=== PATIENT | male | born 1955 | race Caucasian/White ===

== ENCOUNTER 2021-05-03 12:37 | Emergency (ER) | payer MEDICARE, SELFPAY ==
--- NOTE | ~2021-05-03 | XR_ITS ---
EXAMINATION: XR hand RT min 3V DATE: 05/03/2021 13:09 INDICATION: Right hand injury. TECHNIQUE: 3 views of right hand were obtained. COMPARISON: None. FINDINGS: There is an oblique fracture of base of fifth metacarpal. The distal fracture fragment demo nstrates 2 mm posterior and ulnar sided displacement. There is mild osteoarthritis of triscaphe joint , first carpometacarpal joint, and many of the metacarpophalangeal joints and interphalangeal joints. There is moderate osteoarthritis of second and third distal interphalangeal joints. IMPRESSION: 1. Oblique fracture of base of fifth metacarpal. 2. Polyarticular osteoarthritis. Reviewed, dictated and finalized at location A.
[2021-05-03 12:49] VITALS: BP 158/73; PULSE 85; RESP 20; TEMP 36.9; O2SAT 96
--- NOTE | 2021-05-03 12:59 | ED.UPPEXIN ---
HPI - Extremity Injury (Upper) General Chief Complaint: Extremity Injury, Upper Stated Complaint: right wrist injury Time Seen by Provider: 05/03/21 13:10 Source: patient, family, RN notes reviewed and old records reviewed Mode of arrival: ambulatory Limitations: no limitations History of Present Illness HPI narrative: 66-year-old male presents to the [facility] with right lateral hand pain and swelling. Patient reports that he was vacuuming when he tripped over the cord and fell onto his right hand. Area is swollen and bruised. Strong brick paving checker noted. Capillary refill under 2 seconds. Sensation intact in fingers 1 2 and 3. States he has a history of 4 and 5 being numb from when he had a PICC line. Bruising noted to the lateral aspect of the fifth meta carpal. Also fingers 3 and 4 Denies any new back pain or neck pain. Patient states he takes hydrocodone and fentanyl at home, does not need any additional pain medicine MD complaint: injury to: right and hand Related Data Home Medications Medication Instructions Recorded Confirmed amlodipine 10 mg PO DAILY 05/03/21 05/03/21 atorvastatin 40 mg PO DAILY 05/03/21 05/03/21 fentanyl 1 patch TOPICAL Q72H 05/03/21 05/03/21 hydrochlorothiazide 25 mg PO DAILY 05/03/21 05/03/21 hydrocodone-acetaminophen 1 tablet PO Q6H PRN 05/03/21 05/03/21 insulin glargine [Basaglar KwikPen 15 unit SUBCUT QPM 05/03/21 05/03/21 U-100 Insulin] levothyroxine 75 mcg PO DAILY 05/03/21 05/03/21 losartan 100 mg PO DAILY 05/03/21 05/03/21 omeprazole 40 mg PO BID 05/03/21 05/03/21 promethazine 25 mg PO Q6H PRN 05/03/21 05/03/21 sertraline 100 mg PO DAILY 05/03/21 05/03/21 trazodone 50 mg PO HS 05/03/21 05/03/21 ustekinumab [Stelara] 90 mg SUBCUT MONTHLY 05/03/21 05/03/21 Allergies Allergy/AdvReac Type Severity Reaction Status Date / Time metronidazole Allergy Intermediate Swelling Verified 05/03/21 13:02 Review of Systems Review of Systems: All systems reviewed & are unremarkable except as noted in HPI and below Constitutional: Constitutional: Reports no additional constitutional complaints, Denies chills, Denies fever(s), Denies headache(s) and Denies weakness Eyes: Eyes: Reports no additional eye complaints ENT: Reports system reviewed and no additional complaints, except as documented, Denies vertigo, Denies dizziness and Denies headache(s) Cardiovascular: Cardiovascular: Reports no additional cardiovascular complaints, Denies chest pain, Denies syncope and Denies dyspnea Respiratory: Respiratory: Reports no additional respiratory complaints, Denies cough and Denies dyspnea Gastrointestinal: Gastrointestinal: Reports no additional gastrointestinal complaints, Denies abdominal pain, Denies nausea and Denies vomiting Musculoskeletal: Musculoskeletal: Reports as per HPI, Reports joint swelling (Right ulnar aspect wrist) and Denies numbness Comments: Bruising noted to the fourth and fifth metacarpals, fourth and fifth fingers right hand Integumentary/Breasts: Skin/Breast: Reports system reviewed and no additional complaints, except as docu Neurologic: Reports system reviewed and no additional complaints, except as documented, Denies confusion, Denies vertigo, Denies dizziness, Denies syncope, Denies headache(s), Denies focal weakness, Denies numbness and Denies weakness Psychiatric: Psychiatric: Reports no additional psychiatric complaints and Denies confusion Allergic/Immunologic: Allergic/Immunologic: Reports no additional allergic/immunologic complaints [facility] Family History Family History Father Cerebrovascular accident Family history of coronary artery disease Mother Cerebrovascular accident Other Diabetes mellitus Social History Social History Smoking status: Never smoker Alcohol intake: never Comments At the time of my signature, I reviewed and agree with the nursing past
[2021-05-03 13:03] VITALS: BP 158/73; PULSE 85; RESP 20; TEMP 36.9; O2SAT 96
== END 2021-05-03 13:30 | disposition home or self-care (01) ==
PROVIDERS: Emergency Provider Nurse Practitioner; PCP Internal Medicine
DX: S62.316A Displaced fracture of base of fifth metacarpal bone, right hand, initial encounter for closed fracture (principal); W18.09XA Striking against other object with subsequent fall, initial encounter; Y93.E3 Activity, vacuuming; E78.00 Pure hypercholesterolemia, unspecified; I10 Essential (primary) hypertension; K50.90 Crohn's disease, unspecified, without complications; E11.9 Type 2 diabetes mellitus without complications
CPT/HCPCS: 29125; 73130; 99214; A4565; G0463

== ENCOUNTER 2022-10-21 09:38 | Emergency (ER) | payer MEDICARE, MEDICAID, SELFPAY ==
--- NOTE | ~2022-10-21 | XR_ITS ---
AP and oblique views of the left ribs Clinical History: Pain Findings: No rib fracture is seen. Osseous alignment is anatomic. Lungs are clear, without focal cons olidation or pleural effusion. Cardiomediastinal contour is within normal limits. Soft tissues are un remarkable. Impression: No rib fracture is seen. Reviewed, dictated and finalized at [facility]. Impression: No rib fracture is seen.
--- NOTE | ~2022-10-21 | XR_ITS ---
Left Shoulder Technique: AP and scapular Y views were obtained. Clinical History: Pain Findings: No fracture or dislocation is seen. Osseous alignment is anatomic. The glenohumeral and acr omioclavicular joint spaces are preserved. Soft tissues are unremarkable. Impression: Unremarkable left shoulder radiographs. Reviewed, dictated and finalized at [facility]. Impression: Unremarkable left shoulder radiographs.
--- NOTE | ~2022-10-21 | XR_ITS ---
PA, oblique, and lateral views of the left index finger Clinical history: Injury FINDINGS: No fracture or dislocation is seen. There is mild degenerative change of the interphalangea l joints of the second digit. Soft tissues are unremarkable. IMPRESSION: No fracture or dislocation seen. Minimal degenerative change of the PIP and DIP joints in the index finger. Reviewed, dictated and finalized at location .
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
[2022-10-21 09:46] VITALS: BP 170/74; PULSE 82; RESP 16; TEMP 36.7; O2SAT 96
== END 2022-10-21 10:45 | disposition home or self-care (01) ==
PROVIDERS: Emergency Provider Nurse Practitioner; PCP Internal Medicine
DX: M25.512 Pain in left shoulder (principal); M25.542 Pain in joints of left hand; R07.81 Pleurodynia; V19.9XXA Pedal cyclist (driver) (passenger) injured in unspecified traffic accident, initial encounter
CPT/HCPCS: 71100; 73030; 73140; 99214; G0463

== ENCOUNTER 2023-04-03 15:45 | Emergency (ER) | payer MEDICARE, MEDICAID, SELFPAY ==
[2023-04-03 15:52] VITALS: BP 150/75; PULSE 92; RESP 20; TEMP 37.2; O2SAT 94
--- NOTE | 2023-04-03 16:29 | ED.EXTPRO ---
HPI - Extremity Problem General Chief complaint: Extremity Problem,Nontraumatic Stated complaint: Right Arm Hand Swelling/Headache Time Seen by Provider: 04/03/23 16:20 Source: patient, family, RN notes reviewed and old records reviewed Mode of arrival: ambulatory Limitations: no limitations History of Present Illness HPI Narrative: 68 year old male accompanied by with complaints of swelling to the right forearm and right hand starting on Monday with no known trauma to right upper extremity. Patient has scaly rash to the palm of his right hand but most swelling is present to dorsal aspect of hand, Patient has palpable swelling to right forearm with some light redness and warmth noted to inner forearm area. No break in skin integrity noted to right arm. right radial pulse is strong, denies any fevers or acute pain.Patient also reports that he has a headache that won't seem to go away has taken some Ibuprofen for his headache. MD Complaint: other (swelling to right hand and forearm with some warmth) Onset (ago): day(s) (3) Location: right and upper extremity (hand and forearm) Related Data Home Medications Medication Instructions Recorded Confirmed hydrochlorothiazide 25 mg tablet 25 mg PO DAILY 05/03/21 10/21/22 insulin glargine 100 unit/mL (3 15 unit subcut QPM 05/03/21 10/21/22 mL) subcutaneous pen (Basaglar KwikPen U-100 Insulin) levothyroxine 75 mcg tablet 75 mcg PO DAILY 05/03/21 10/21/22 sertraline 100 mg tablet 100 mg PO DAILY 05/03/21 10/21/22 trazodone 50 mg tablet 50 mg PO HS 05/03/21 10/21/22 albuterol sulfate 90 mcg/actuation 2 puff inhalation Q4-6H PRN 10/21/22 10/21/22 aerosol inhaler Shortness Of Breath Or Wheezing atorvastatin 80 mg tablet 80 mg PO DAILY 10/21/22 10/21/22 amlodipine 10 mg tablet mg 04/03/23 losartan 100 mg tablet mg 04/03/23 Allergies Allergy/AdvReac Type Severity Reaction Status Date / Time metronidazole Allergy Intermediate Swelling Verified 10/21/22 10:23 Review of Systems Review of Systems: CONSTITUTIONAL: Denies fever, chills, or sweats. EYES: Denies visual changes, redness, or discharge. ENT: Denies rhinorrhea, congestion, sore throat, or otalgia. CARDIOVASCULAR: Denies chest pain, palpitations, or edema. RESPIRATORY: Denies cough or dyspnea. GASTROINTESTINAL: Denies abdominal pain, nausea, vomiting, or diarrhea. GENITOURINARY: Denies dysuria or hematuria. SKIN: Positive for swelling to the dorsal hand and right forearm with some light redness and warmth to the inner right forearm. has scaly looking rash to right hand palm no drainage. MUSCULOSKELETAL: Denies back pain, joint pain, or myalgia. NEUROLOGIC: Reports headache,no numbness, or weakness. PSYCHIATRIC:Positive for history of anxiety or depression. All systems reviewed & are unremarkable except as noted in HPI and below PMFSH Past Medical History Medical History (Updated 04/04/23 @ 20:53 by Josefa Lara NP) Anxiety and depression Chronic back pain Crohn's disease not affecting current episode of care Diabetes Hyperlipidemia Hypertension Hypothyroidism Kidney stone Osteomyelitis Had PICC line Surgical History Surgical History (Updated 04/04/23 @ 20:46 by Josefa Lara NP) History of appendectomy History of intestinal surgery for bowel obstruction Family History Family History Father Cerebrovascular accident Family history of coronary artery disease Mother Cerebrovascular accident Other Diabetes mellitus Social History Social History (Updated 04/04/23 @ 20:46 by Josefa Lara NP) Smoking status: Never smoker Alcohol intake: never Substance use: never Gender identity (if verbalized by the patient): Male Comments At time of signature, agree with nursing past medical, surgical, social and family history. There is no relevant family history pertinent to the presenting complaint Exam Narrative: Raza
== END 2023-04-03 16:55 | disposition home or self-care (01) ==
PROVIDERS: Emergency Provider Registered Nurse; PCP Internal Medicine
DX: L03.113 Cellulitis of right upper limb (principal); F41.8 Other specified anxiety disorders; K50.90 Crohn's disease, unspecified, without complications; E11.9 Type 2 diabetes mellitus without complications; E78.5 Hyperlipidemia, unspecified; I10 Essential (primary) hypertension; E03.9 Hypothyroidism, unspecified
CPT/HCPCS: 99213; G0463

== ENCOUNTER 2023-10-10 11:13 | Emergency (ER) | payer MEDICARE, SELFPAY ==
--- NOTE | ~2023-10-10 | XR_ITS ---
EXAMINATION: XR chest 2V 10/10/2023 12:04 INDICATION: Cough PROCEDURE: 2 view chest COMPARISON: No prior studies for comparison. FINDINGS: The lungs are clear. The cardiomediastinal silhouette is within normal limits. There are no pleural effusions. There is no pneumothorax suspected. There is lower thoracic spondylosis with accentuated kyphosis. IMPRESSION: 1: NO ACUTE CARDIOPULMONARY DISEASE. Reviewed, dictated and finalized at location B.
[2023-10-10 11:22] VITALS: BP 146/57; PULSE 70; RESP 20; TEMP 37.2; O2SAT 94
[2023-10-10] MEDS: methylPREDNISolone SOD SUCC 125 MG VIAL IM (11:37)
[2023-10-10] MEDS: IPRATROPIUM BR 0.02% INH SOLN 0.5 MG/2.5 ML VIAL INHALATION (11:38)
[2023-10-10] MEDS: ALBUTEROL SULFATE NEB 2.5 MG/3 ML INH INHALATION (11:38)
--- NOTE | 2023-10-10 11:47 | ED.URI ---
HPI - URI/Sore Throat General Chief Complaint: Upper Respiratory Infection Stated Complaint: chest cold History of Present Illness HPI Narrative: patient presents with chest congestion productive cough at times for the past 6 months. Patient denies any shortness of breath no chest pain. Patient states he does have an albuterol inhaler and uses it as needed is but is not sure why he has it. Patient denies any COPD and denies any asthma. Patient has not followed up with his primary care provider for this complaint. No fever no body aches. Patient is not taking [id number] for her symptoms. Related Data Home Medications Medication Instructions Recorded Confirmed hydrochlorothiazide 25 mg tablet 25 mg PO DAILY 05/03/21 10/10/23 insulin glargine 100 unit/mL (3 15 unit subcut QPM 05/03/21 10/10/23 mL) subcutaneous pen (Basaglar KwikPen U-100 Insulin) levothyroxine 75 mcg tablet 75 mcg PO DAILY 05/03/21 10/10/23 sertraline 100 mg tablet 100 mg PO DAILY 05/03/21 10/10/23 trazodone 50 mg tablet 50 mg PO HS 05/03/21 10/10/23 albuterol sulfate 90 mcg/actuation 2 puff inhalation Q4-6H PRN 10/21/22 10/10/23 aerosol inhaler Shortness Of Breath Or Wheezing atorvastatin 80 mg tablet 80 mg PO DAILY 10/21/22 10/10/23 amlodipine 10 mg tablet 10 mg PO DAILY 04/03/23 10/10/23 losartan 100 mg tablet 100 mg PO DAILY 04/03/23 10/10/23 Allergies Allergy/AdvReac Type Severity Reaction Status Date / Time metronidazole Allergy Intermediate Swelling Verified 10/10/23 11:20 Review of Systems Review of Systems: CONSTITUTIONAL: Denies chills, or sweats. Reports fever and generalized body aches EYES: Denies visual changes, redness, or discharge. ENT: Denies otalgia. Reports nasal congestion runny nose and sore throat CARDIOVASCULAR: Denies chest pain, palpitations, or edema. RESPIRATORY: Denies dyspnea. Reports occasional cough GASTROINTESTINAL: Denies abdominal pain, nausea, vomiting, or diarrhea. GENITOURINARY: Denies dysuria or hematuria. SKIN: Denies rash or itching. MUSCULOSKELETAL: Denies back pain, joint pain, or myalgia. Reports generalized body aches NEUROLOGIC: Denies headache, numbness, or weakness. PSYCHIATRIC: Denies anxiety or depression. [facility] Past Medical History Medical History (Updated 10/10/23 @ 11:49 by IRA Giordano) Anxiety and depression Chronic back pain Crohn's disease not affecting current episode of care Diabetes Hyperlipidemia Hypertension Hypothyroidism Kidney stone Osteomyelitis Had PICC line Surgical History Surgical History (Updated 04/04/23 @ 20:46 by Josefa Lara NP) History of appendectomy History of intestinal surgery for bowel obstruction Family History Family History Father Cerebrovascular accident Family history of coronary artery disease Mother Cerebrovascular accident Other Diabetes mellitus Social History Social History (Updated 04/04/23 @ 20:46 by Josefa Lara NP) Smoking status: Never smoker Alcohol intake: never Substance use: never Gender identity (if verbalized by the patient): Male Comments At time of signature, agree with nursing past medical, surgical, social and family history. There is no relevant family history pertinent to the presenting complaint Exam Narrative: The patient is a well-developed, well-nourished in no acute distress. SKIN: Skin is warm and dry without erythema, swelling or exudate. There is good turgor. No tenting. HEAD: Atraumatic. Normocephalic. No temporal or scalp tenderness. EYES: Moist and bright. Sclera and conjunctivae normal. No discharge. PERRLA. Extraocular motions intact. Gross visual acuity intact. EARS: Pinna is normal shape and contour. Clear external auditory canals. TM pearly calderon with good cone of light, no erythema or suppuration. Bilateral cerumen noted no gross hearing deficit. NOSE: pink, moist mucosa with good air mov
== END 2023-10-10 12:28 | disposition home or self-care (01) ==
PROVIDERS: Emergency Provider Nurse Practitioner Family; PCP Internal Medicine
DX: J40 Bronchitis, not specified as acute or chronic (principal); K50.90 Crohn's disease, unspecified, without complications; E11.9 Type 2 diabetes mellitus without complications; Z79.4 Long term (current) use of insulin; E78.5 Hyperlipidemia, unspecified; I10 Essential (primary) hypertension; E03.9 Hypothyroidism, unspecified; F41.9 Anxiety disorder, unspecified; F32.A Depression, unspecified
CPT/HCPCS: 71046; 96372; 99213; G0463; J2919

== ENCOUNTER 2024-08-27 14:14 | Emergency (ER) | payer MEDICARE, SELFPAY ==
--- OUTSIDE RECORDS SUMMARY | 2024-08-27 14:20 | XMS_ITS | Encounter Summary ---
Author Organization [facility] Address [address] [place] [address] Phone Care Team Providers Care Metal Fabricator Welder Name Role Phone Derek Sanchez MD Primary Care Provider [phone] Shad Saunders MD Unavailable [phone] Reason for Visit * Reason Comments Medication Refill Encounter Details Date Type Department Care Team (Late st Contact Info) Description 06/19/2023 Refill [facility] - Family Medicine [facility] [address] [place] [address] Derek Sanchez MD [address] [address] Medication Refill Social History Tobacco Use Types Packs/Day Years Used Date Smoking Tobacco: Never Smokeless Tobacco: Never Alcohol Use Standard Drinks/Week Comments No 0 (1 standard drink = 0.6 oz pur e alcohol) PHQ-2 Answer Date Recorded Total Score - Questions 1-9 0 05/23 Education Answer Date Recorded What is the highest level of school you have completed or the highest degree you have received? 12th grade 09/30/2020 Sexually Active Control Partners Comments Yes Female Sex and Gender Information Value Date Recorded Sex Assigned at Not on file Legal Sex Male 9:15 PM CDT Gender Identity Not on file Sexual Orientation Not on file Occupation Industry Job Start Date Job End Date disabled Not on file Not on file Not on file documented as of this encounter Functional Status * Question Answer Date of Assessment Author Little interest or pleasure in doing things Not at all 06/20/2023 12:45 PM CDT LaurynUdayee L, RMA Feeling down, depressed, or hopeless Not at all 06/20/2023 12:45 PM CDT Lauryn Cordelia L, RMA * Over the past 2 weeks, how often have you been bothered by any of the following problems? Question Answer Date of Assessment Author Patient Health Questionnaire -2 Score 0 06/20/2023 12:45 PM CDT Lauryn Cordelia L, RMA documented as of this encounter Miscellaneous Notes * Telephone Encounter - Tesha Gurrola RN - 06/19/2023 4:43 PM CDT Rx for 11 month supply was sent in 05/04/23 [facility] documented in this encounter Plan of Treatment Not on file documented as of this encounter Visit Diagnoses Not on filedocumented in this encounter Additional Health Concerns Infection Onset Date Last Indicated Resolved Time COVID - 19 08/09/2024 08/09/2024 08/10/2024 1:39 AM CDT Assessment Noted Time PHQ-9 Depression Total Score: 0 12/17/19 1:50 PM CDT documented as of this encounter Care Teams Metal Fabricator Welder Relationship Specialty Start Date End Date Derek Sanchez MD [address] [address] PCP - General Family Medicine 10/01/15 Shad Saunders MD [address] [address] General Surgery 08/11/16 documented as of this encounter
--- OUTSIDE RECORDS SUMMARY | 2024-08-27 14:20 | XMS_ITS | Encounter Summary ---
Author Organization [facility] Address [address] [place] [address] Phone Care Team Providers Care Apprentice Instrument Technician Name Role Phone Derek Sanchez MD Primary Care Provider [phone] Shad Saunders MD Unavailable [phone] Reason for Visit * Reason Comments Medication Refill Encounter Details Date Type Department Care Team (Late st Contact Info) Description 11/06/2019 Refill [facility] - Family Medicine [facility] [address] [place] [id number] Derek Sanchez MD [address] [address] Medication Refill Social History Tobacco Use Types Packs/Day Years Used Date Smoking Tobacco: Never Smokeless Tobacco: Never Alcohol Use Standard Drinks/Week Comments No 0 (1 standard drink = 0.6 oz pur e alcohol) PHQ-2 Answer Date Recorded Total Score - Questions 1-9 13 10/21 Sexually Active Control Partners Comments Yes Female Sex and Gender Information Value Date Recorded Sex Assigned at Not on file Legal Sex Male 9:15 PM CDT Gender Identity Not on file Sexual Orientation Not on file Occupation Industry Job Start Date Job End Date disabled Not on file Not on file Not on file COVID-19 Exposure Response Date Recorded In the last month, have you been in contact with someone who was confirmed or suspected to have Coronavirus / COVID-19? No / Unsure 11/06/2019 1:32 PM CDT documented as of this encounter Miscellaneous Notes * Telephone Encounter - Derek Sanchez MD - 11/07/2019 10:44 AM CDT Prescription approved. Please call in * Telephone Encounter - Huong Méndez - 11/07/2019 10:30 AM CDT Faxed to [employer] ( [employer] successfully. documented in this encounter Plan of Treatment Not on file documented as of this encounter Visit Diagnoses Not on filedocumented in this encounter Additional Health Concerns Infection Onset Date Last Indicated Resolved Time COVID - 19 05/14/2020 05/14/2020 05/16/2020 6:29 AM CDT COVID - 19 01/30/2021 01/30/2021 01/30/2021 1:58 PM CUFF FOLDER Respiratory Rule Out - RPA 01/30/2021 01/30/2021 1 04/03/2020 6:15 PM CUFF FOLDER COVID - 19 08/09/2024 08/09/2024 08/10/2024 1:39 AM CDT Assessment Noted Time PHQ-9 Depression Total Score: 13 020 1:45 PM CDT documented as of this encounter Care Teams Apprentice Instrument Technician Relationship Specialty Start Date End Date Derek Sanchez MD #[address] [address] PCP - General Family Medicine 10/01/15 Shad Saunders MD #[address] [address] General Surgery 08/11/16 documented as of this encounter
--- OUTSIDE RECORDS SUMMARY | 2024-08-27 14:20 | XMS_ITS | Encounter Summary ---
Author Organization [facility] Address [address] [place] [address] Phone Care Team Providers Care Cruise Consultant Name Role Phone Derek Sanchez MD Primary Care Provider [phone] Shad Saunders MD Unavailable [phone] Reason for Visit * Reason Comments Medication Refill Encounter Details Date Type Department Care Team (Late st Contact Info) Description 08/31/2020 Refill [facility] #2 [place] [id number] Derek Sanchez MD [address] [address] Medication Refill Social History Tobacco Use Types [...] on file documented as of this encounter Plan of Treatment Not on file documented as of this encounter Visit Diagnoses Not on filedocumented in this encounter Additional Health Concerns Infection Onset Date Last Indicated Resolved Time COVID - 19 01/30/2021 01/30/2021 01/30/2021 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
--- OUTSIDE RECORDS SUMMARY | 2024-08-27 14:20 | XMS_ITS | Encounter Summary ---
Author Organization [facility] Address [address] [place] [address] Phone Care Team Providers Care Assistant Clinical Nurse Manager Name Role Phone Derek Sanchez MD Primary Care Provider Shad Saunders MD Unavailable [phone] Reason for Visit * Reason Comments Medication Refill Encounter Details Date Type Department Care Team (Late st Contact Info) Description 06/06/2023 Refill [facility] #2 [place] [address] Derek Sanchez MD #[address] [address] Medication Refill Social History Tobacco Use Types Packs/Day Years Used Date Smoking Tobacco: Never Smokeless Tobacco: Never Alcohol Use Standard Drinks/Week Comments No 0 (1 standard drink = 0.6 oz pur e alcohol) PHQ-2 Answer Date Recorded Total Score - Questions 1-9 0 11/21 Education Answer Date Recorded What is the [...] on file documented as of this encounter Miscellaneous Notes * Telephone Encounter - Tesha Gurrola RN - 06/06/2023 11:58 AM CDT Medication failed the protocol, provider to review and approve the medication order if appropriate. Requested Prescriptions Pending Prescriptions Disp Refills traZODone (DESYREL) 50 MG Tablet [Pharmacy Med Name: traZODone HCl 50 MG Tablet] 30 Tablet 10 Sig: TAKE 1 TABLET BY MOUTH EVERY NIGHT Serotonin Modulators (6 Month Refill Only) Protocol Failed - 06/06/2023 10:18 AM Failed - Has an encounter in the past 6 months with a depression or anxiety visit diagnosis Passed - Visit with relevant provider in past 6 months or upcoming 90 days Recent Visits Date Type Provider Dept 01/27/23 Office Visit Derek Sanchez MD [facility] 12/16/22 Office Visit Tyesha Paez APRN, SPACE SCIENCES DIRECTOR [facility] Showing recent visits within past 182 days and meeting all other requirements Future Appointments Date Type Provider Dept 06/20/23 Appointment Derek Sanchez MD [facility] Showing future appointments within next 90 days and meeting all other requirements Passed - No PRN Use for Trazodone Passed - Patient has established therapy with Serotonin Modulators for at least 6 months Refused Prescriptions Disp Refills losartan (COZAAR) 100 MG Tablet [Pharmacy Med Name: Losartan Potassium 100 MG Tablet] 30 Tablet 10 Sig: TAKE 1 TABLET BY MOUTH EVERY DAY ARB Protocol Passed - 06/06/2023 10:18 AM Passed - Serum potassium on record in past 12 months POTASSIUM Date Value Ref Range Status 09/11/2022 3.7 3.5 - 5.1 mmol/L Final Passed - BP on record in the past year Clinician-entered: BP Readings from Last 3 Encounters: 01/27/23 134/64 12/16/22 138/64 09/11/22 (!) 162/94 Patient-entered: No data recorded Passed - Visit with relevant provider in past year or upcoming 90 days Recent Visits Date Type Provider Dept 01/27/23 Office Visit Derek Sanchez MD [facility] 12/16/22 Office Visit Tyesha Paez APRN, SPACE SCIENCES DIRECTOR [facility] 06/30/22 Office Visit Derek Sanchez MD [facility] Showing recent visits within past 365 days and meeting all other requirements Future Appointments Date Type Provider Dept 06/20/23 Appointment Derek Sanchez MD [facility] Showing future appointments within next 90 days and meeting all other requirements Passed - GFR on record in past 12 months GFR, EST. NONAFRICAN Date Value Ref Range Status 09/11/2022 >60 >=60 Final fluticasone (FLONASE) 50 MCG/ACT Suspension [Pharmacy Med Name: Fluticasone Propionate 50 MCG/ACT Suspension] 16 g 10 Sig: SHAKE LIQUID AND USE 1 TO 2 SPRAYS IN EACH NOSTRIL EVERY DAY DIRECTED Nasal Steroids Protocol Passed - 06/06/2023 10:18 AM Passed - Visit with relevant provider in past 12 months or upcoming 90 days Recent Visits Date Type Provider Dept 01/27/23 Office Visit Derek Sanchez MD [facility] 12/16/22 Office Visit Tyesha Paez APRN, CNP [facility] 06/30/22 Office Visit Derek Sanchez MD [facility] Showing recent visits within past 365 days and meeting all other requirements Future Appointments Date Type Provider Dept 06/20/23 Appointment Derek Sanchez MD [facility] Showing future appointments within next 90 days and meeting all other requirements * Telephone Encounter - Tesha Gurrola RN - 06/06/2023 11:56 AM CDT Fluticasone spray - ordered 05/04/23 #16 g + 10 refills - [facility] Losartan - ordered 05/04/23 #30 + 10 refills - [facility] documented in this encounter Plan of Treatment Not on file documented as of this encounter Visit Diagnoses Not on filedocumented in this encounter Additional Health Concerns Infection Onset Date Last Indicated Resolved Time COVID - 19 08/09/2024 08/09/2024 08/10/2024 1:39 AM CDT Assessment Noted Time PHQ-9 Depression Total Score: 0 12/17/19 23 1:50 PM CDT documented as of this encounter Care Teams Assistant Clinical Nurse Manager Relationship Specialty Start Date End Date Derek Sanchez MD #[address] [address] PCP - General Family Medicine 10/01/15 Shad Saunders MD #[address] [address] General Surgery 08/11/16 documented as of this encounter
--- OUTSIDE RECORDS SUMMARY | 2024-08-27 14:20 | XMS_ITS | Encounter Summary ---
Author Organization [facility] Address [address] [place] [address] Phone Care Team Providers Care Sole Leveler Name Role Phone Derek Sanchez MD Primary Care Provider [phone] Shad Saunders MD Unavailable [phone] Reason for Visit * Reason Comments Medication Refill Encounter Details Date Type Department Care Team (Late st Contact Info) Description 06/12/2024 Refill [facility] Family Medicine [facility] #2 [place] [phone] Derek Sanchez MD #[address] [address] Medication Refill Social History Tobacco Use Types Packs/Day Years Used Date Smoking Tobacco: Never Smokeless Tobacco: Never Alcohol Use Standard Drinks/Week Comments No 0 (1 standard drink = 0.6 oz pur e alcohol) [facility] Utilities Answer Date Recorded In the past 12 months has [employer] electric, gas, oil, or water company threatened to shut off services in your home? No 01/03/2024 Social Connection and Isolation Panel Answer Date Recorded In a typical week, how many times do you talk on the phone with family, friends, or neighbors? Never 01/03/2024 How often do you get together with friends or re latives? Never 01/03/2024 Attends [employer] Services Not on file 11/13 /2024 Active Member of Clubs or Organizations Not on f ile 01/03/2024 Attends Club or Organization Meetings Not on graciela e 01/03/2024 Marital Status Not on file 01/03/2024 AUDIT-C Answer Date Recorded Q1: How often do you have a drink containing alcohol? Never 01/03/2024 Q2: How many drinks containi ng alcohol do you have on a typical day when you are drinking? Patient does not drink Frequency of Binge Drinking Not on file 12/21 Overall Financial Resource Strain (CARDIA) Answe r Date Recorded How hard is it for you to pa y for the very basics like food, housing, medical care, and heating? Not hard at all 01/03/2024 PHQ-2 Answer Date Recorded Total Score - Questions 1-9 0 12/21 [facility] - Occupational Stress Questionnaire Answer Date Recorded Do you feel stress - tense, restless, nervous, or anxious, or unable to sleep at night because your mind is troubled all the time - these days? Only a little 01/03/2024 Exercise Vital Sign Answer Date Recorde d On average, how many days pe r week do you engage in moderate to strenuous exercise (like a brisk walk)? 2 days 01/03/2024 On average, how many minutes do you engage in exercise at this level? 0 min 01/03/2024 Hunger Vital Sign Answer Date Recorded Within the past 12 months, y ou worried that your food would run out before you got the money to buy more. Never true 01/03/20 24 Within the past 12 months, t he food you bought just didn't last and you didn't have money to get more. Never true 01/03/2024 PRAPARE - Transportation Answer Date Re corded In the past 12 months, has l ack of transportation kept you from medical appointments or from getting medications? Yes 12/21 In the past 12 months, has l ack of transportation kept you from meetings, work, or from getting things needed for daily living? No 01/03/2024 Housing Stability Vital Sign Answer Austin e Recorded In the last 12 months, was t here a time when you were not able to pay the mortgage or rent on time? No 01/03/2024 In the past 12 months, how m any times have you moved where you were living? 0 01/03/2024 At any time in the past 12 m [facility], were you homeless or living in a senior living (including now)? No 01/03/2024 Education Answer Date Recorded What is the [...] Noted Time PHQ-9 Depression Total Score: 0 01/03/20 24 11:07 AM JORDAN WORKER documented as of this encounter Care Teams Sole Leveler Relationship Specialty Start Date End Date Derek Sanchez MD #[address] [address] PCP - General Family Medicine 10/01/15 Shad Saunders MD #[address] [address] General Surgery 08/11/16 documented as of this encounter
--- OUTSIDE RECORDS SUMMARY | 2024-08-27 14:20 | XMS_ITS | Encounter Summary ---
Author Organization [facility] Address [address] [place] [address] Phone Care Team Providers Care Welder Fitter Helper Name Role Phone Derek Sanchez MD Primary Care Provider [phone] Shad Saunders MD Unavailable Reason for Visit * Reason Comments Medication Refill Encounter Details Date Type Department Care Team (Late st Contact Info) Description 11/10/2020 Refill [facility] Family [facility] #2 [place] [address] Derek Sanchez MD #[address] [address] Medication Refill Social History Tobacco Use Types Packs/Day Years Used Date Smoking Tobacco: Never Smokeless Tobacco: Never Alcohol Use Standard Drinks/Week Comments No 0 (1 standard drink = 0.6 oz pur e alcohol) PHQ-2 Answer Date Recorded Total Score - Questions 1-9 13 10/21 Education Answer Date Recorded What is the [...] Telephone Encounter - Derek Sanchez MD - 11/10/2020 1:42 PM CDT Prescription approved. Please call in * Telephone Encounter - Nani Treviño RN - 11/10/2020 1:40 PM CDT Medication failed the protocol, provider to review and approve the medication order if appropriate. 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
--- OUTSIDE RECORDS SUMMARY | 2024-08-27 14:20 | XMS_ITS | Encounter Summary ---
Author Organization [facility] Address [address] [place] [address] Phone Care Team Providers Care Power Tool Repair Technician Name Role Phone Derek Sanchez MD Primary Care Provider [phone] Shad Saunders MD Unavailable [phone] Reason for Visit * Reason Comments Medication Refill Encounter Details Date Type Department Care Team (Late st Contact Info) Description 05/04/2023 Refill [facility] #2 [place] [address] Derek Sanchez MD #[address] [address] Medication Refill Social History Tobacco Use Types [...] encounter Miscellaneous Notes * Telephone Encounter - Karen Moran RN - 05/04/2023 9:14 AM CDT Medication(s) refilled and signed per [facility] Chronic Medication Refill Standing Order for Pediatricand Adult Patients. Requested Prescriptions Pending Prescriptions Disp Refills losartan (COZAAR) 100 MG Tablet [Pharmacy Med Name: Losartan Potassium 100 MG Tablet] 30 Tablet 10 Sig: TAKE 1 TABLET BY MOUTH EVERY DAY ARB Protocol Passed - 05/04/2023 8:52 AM Passed - Serum potassium on record [...] Dept 01/27/23 Office Visit Derek Sanchez MD [facility] 12/16/22 Office Visit Tyesha Paez APRN, ANESTHESIOLOGIST ASSISTANT CERTIFIED [facility] Office Visit Derek Sanchez MD [facility] 05/05/22 Office Visit Derek Sanchez MD [facility] Showing recent visits within past 365 days and meeting all other requirements Future Appointments Date Type Provider Dept 06/20/23 Appointment Derek Sanchez MD [facility] Showing future appointments within next 90 days [...] DAY DIRECTED Nasal Steroids Protocol Passed - 05/04/2023 8:52 AM Passed - Visit with relevant provider in past 12 months or upcoming 90 days Recent Visits Date Type Provider Dept 01/27/23 Office Visit [facility] MD [facility] 12/16/22 Office Visit Tyesha Paez APRN, ANESTHESIOLOGIST ASSISTANT CERTIFIED [facility] 06/30/22 Office Visit Derek Sanchez MD [facility] 05/05/22 Office Visit Derek Sanchez MD [facility] Showing recent visits within past 365 days and meeting all other requirements Future Appointments Date Type Provider Dept 06/20/23 Appointment Derek Sanchez MD [facility] Showing future appointments within next 90 days and meeting all other requirements documented in this encounter Plan of Treatment Not on file documented as of this encounter Visit Diagnoses Not on filedocumented in this encounter Additional Health Concerns Infection Onset Date Last Indicated Resolved Time COVID - 19 08/09/2024 08/09/2024 08/10/2024 1:39 AM CDT Assessment Noted Time PHQ-9 Depression Total Score: 0 12/17/19 1:50 PM CDT documented as of this encounter Care Teams Power Tool Repair Technician Relationship Specialty Start Date End Date Derek Sanchez MD #[address] [address] PCP - General Family Medicine 10/01/15 Shad Saunders MD #[address] [address] General Surgery 08/11/16 documented as of this encounter
--- OUTSIDE RECORDS SUMMARY | 2024-08-27 14:20 | XMS_ITS | Encounter Summary ---
Author Organization [facility] Address [address] [place] [address] Phone Care Team Providers Care Recreational Therapy Technician Name Role Phone Derke Sanchez MD Primary Care Provider [phone] Shad Saunders MD Unavailable [phone] Reason for Visit * Reason Comments Medication Refill Encounter Details Date Type Department Care Team (Late st Contact Info) Description 05/04/2023 Refill [facility] - [place] #2 [place] [address] Tyesha Paez APRN, TAPE MAKER #[address] [address] Medication Refill Social History Tobacco Use Types [...] Telephone Encounter - Tesha Gurrola RN - 05/04/2023 11:46 AM CDT Medication failed the protocol, provider to review and approve the medication order if appropriate. Requested Prescriptions Pending Prescriptions Disp Refills mupirocin (BACTROBAN) 2 % Ointment [Pharmacy Med Name: Mupirocin 2 % Ointment] 15 g 10 Sig: APPLY TO WOUND TWICE A DAY Topical Antibacterials Protocol Failed - 05/04/2023 8:51 AM Failed - Active on medication list Passed - Visit with relevant provider in past 12 months or upcoming 90 days Recent Visits Date Type Provider Dept 01/27/23 Office Visit [facility] MD [facility] 12/16/22 Office Visit Tyesha Paez APRN, CNP [facility] 06/30/22 Office Visit Derek Sanchez MD [facility] 05/05/22 Office Visit Derek Sanchez MD [facility] Showing recent visits within past 365 days and meeting all other requirements Future Appointments Date Type Provider Dept 06/20/23 Appointment Derek Sanchez MD [facility] Showing future appointments within next 90 [...] documented as of this encounter Care Teams Recreational Therapy Technician Relationship Specialty Start Date End Date Derek Sanchez MD #[address] [address] PCP - General Family Medicine 10/01/15 Shad Saunders MD #[address] [address] General Surgery 08/11/16 documented as of this encounter
--- OUTSIDE RECORDS SUMMARY | 2024-08-27 14:20 | XMS_ITS | Encounter Summary ---
Author Organization [facility] Address [address] [place] [address] Phone Care Team Providers Care Ingot Stripper Name Role Phone Derek Sanchez MD Primary Care Provider [phone] Shad Saunders MD Unavailable [phone] Reason for Visit * Reason Comments Medication Refill Encounter Details Date Type Department Care Team (Late st Contact Info) Description 03/04/2024 Refill [facility] #2 [place] [address] Derek Sanchez MD #[address] [address] Medication Refill Social History Tobacco Use Types Packs/Day Years Used Date Smoking Tobacco: Never Smokeless Tobacco: Never Alcohol Use Standard Drinks/Week Comments No 0 (1 standard drink = 0.6 oz pur e alcohol) [facility] Utilities Answer Date Recorded In the past 12 months has [employer] electric, gas, oil, or water company threatened to shut off services in your home? No 01/03/2024 Social Connection and Isolation Panel Answer Date Recorded In a typical week, how many times do you talk on the phone with family, friends, or neighbors? Never 01/03/2024 How often do you get together with friends or re latives? Never 01/03/2024 Attends Confucianist Services Not on file 11/13 /2024 Active [...] Total Score - Questions 1-9 0 12/21 [facility] - Occupational [...] any time in the past 12 m [facility], were you homeless or living in a halfway (including now)? No 01/03/2024 Education Answer Date [...] Total Score: 0 01/03/20 24 11:07 AM FLAT EXAMINER documented as of this encounter Care Teams Ingot Stripper Relationship Specialty Start Date End Date Derek Sanchez MD #[address] [address] PCP - General Family Medicine 10/01/15 Shad Saunders MD #[address] [address] General Surgery 08/11/16 documented as of this encounter
--- OUTSIDE RECORDS SUMMARY | 2024-08-27 14:20 | XMS_ITS | Encounter Summary ---
Author Organization [facility] Address [address] [place] [address] Phone Care Team Providers Care Glass Smoother Name Role Phone Derek Sanchez MD Primary Care Provider [phone] Shad Saunders MD Unavailable [phone] Reason for Visit * Reason Comments Medication Refill Encounter Details Date Type Department Care Team (Late st Contact Info) Description 12/26/2022 Refill [facility] #2 [place] [address] Derek Sanchez MD #[address] [address] Medication Refill Social History Tobacco Use Types [...] Exposure Response Date Recorded In the last 10 days, have yo u been in contact with someone who was confirmed or suspected to have Coronavirus/COVID-19? No / Unsure 12/16/2022 1:47 PM CDT documented as of this encounter Miscellaneous Notes * Telephone Encounter - Tesha Gurrola RN - 12/27/2022 8:49 AM CST PRN medication requires review from provider Per nursing clinical judgement, provider to review and approve the medication(s) order(s) if appropriate. Requested Prescriptions Pending Prescriptions Disp Refills albuterol 108 (90 Base) MCG/ACT Aerosol Solution [Pharmacy Med Name: ALBUTEROL HFA INH(200 PUFFS) 18GM] 54 g 1 Sig: INHALE 2 PUFFS BY MOUTH EVERY 6 HOURS NEEDED FOR WHEEZING OR COUGH Short Acting Inhaled Beta-Agonists Protocol Passed - 12/26/2022 4:01 PM Passed - Visit with relevant provider in past 12 months or upcoming 90 days Recent Visits Date Type Provider Dept 12/16/22 Office Visit Tyesha Paez APRN, CNP [facility] [place] [place] [facility] 06/30/22 Office Visit Derek Sanchez MD [facility] 05/05/22 Office Visit Derek Sanchez MD [facility] 04/01/22 Office Visit Derek Sanchez MD [facility] 01/25/22 Office Visit Chaim Park [facility] Show[facility] recent visits within past 365 days and meeting all other requirements Future Appointments No visits were found meeting these conditions. Showing future appointments within next 90 days and meeting all other requirements TENANCE SHOP CLERK documented in this encounter Plan of Treatment Not on file documented as of this encounter Visit Diagnoses Not on filedocumented in this encounter Additional Health Concerns Infection Onset Date Last Indicated Resolved Time COVID - 19 08/09/2024 08/09/2024 08/10/2024 1:39 AM CDT Assessment Noted Time PHQ-9 Depression Total Score: 0 12/17/19 1:50 PM CDT documented as of this encounter Care Teams Glass Smoother Relationship Specialty Start Date End Date Derek Sanchez MD #[address] [address] PCP - General Family Medicine 10/01/15 Shad Saunders MD #[address] [address] General Surgery 08/11/16 documented as of this encounter
--- OUTSIDE RECORDS SUMMARY | 2024-08-27 14:20 | XMS_ITS | Encounter Summary ---
Author Organization [facility] Address [address] [place] [address] Phone Care Team Providers Care Child Welfare Caseworker Name Role Phone Derek Sanchez MD Primary Care Provider [phone] Shad Saunders MD Unavailable [phone] Reason for Visit * Reason Comments Medication Refill Encounter Details Date Type Department Care Team (Late st Contact Info) Description 11/18/2020 Refill [facility] [address] [place] [address] Derek Sanchez MD [address] [address] Medication Refill Social History Tobacco Use Types [...] Telephone Encounter - Derek Sanchez MD - 11/19/2020 10:01 AM CDT Prescription approved. Please call in * Telephone Encounter - Tesha Gurrola RN - 11/19/2020 9:55 AM CDT Medication failed the protocol, provider to review and approve the medication order if appropriate. Requested Prescriptions Pending Prescriptions Disp Refills amLODIPine (NORVASC) 10 MG Tablet [Pharmacy Med Name: AMLODIPINE BESYLATE 10MG TABLETS] 90 Tablet 3 Sig: TAKE 1 TABLET BY MOUTH DAILY Calcium-Channel Blockers Protocol Passed - 11/19/2020 9:55 AM Passed - BP on record in the past year Clinician-entered: BP Readings from Last 3 Encounters: 09/30/20 152/80 09/22/20 154/64 06/09/20 128/66 Patient-entered: No data recorded Passed - Visit with relevant provider in past 12 months or upcoming 90 days Recent Visits Date Type Provider Dept 09/30/20 Office Visit Janae Fabian PAC [facility] [place] 06/09/20 Office Visit Derek Sanchez MD [facility] 05/11/20 Office Visit Derek Sanchez MD [facility] 03/10/20 Office Visit Derek Sanchez MD [facility] 03/04/20 Office Visit Derek Sanchez MD [facility] 02/10/20 Office Visit Derek Sanchez MD [facility] 12/13/19 Office Visit Derek Sanchez MD [facility] [place] Showing recent visits within past 365 days and meeting all other requirements Future Appointments No visits were found meeting these conditions. Showing future appointments within next 90 days and meeting all other requirements traZODone (DESYREL) 50 MG Tablet [Pharmacy Med Name: TRAZODONE 50MG TABLETS] 90 Tablet 0 Sig: TAKE 1 TABLET BY MOUTH EVERY NIGHT Serotonin Modulators (6 Month Refill Only) Protocol Failed - 11/19/2020 9:55 AM Failed - Has an encounter in the past 6 months with a depression or anxiety visit diagnosis Passed - Visit with relevant provider in past 6 months or upcoming 90 days Recent Visits Date Type Provider Dept 09/30/20 Office Visit Janae Fabian PAC [facility] [place] 06/09/20 Office Visit Derek Sanchez MD [facility] Showing recent visits within past 182 days and meeting all other requirements Future Appointments No visits were found meeting these conditions. 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
--- OUTSIDE RECORDS SUMMARY | 2024-08-27 14:20 | XMS_ITS | Encounter Summary ---
Author Organization [facility] Address [address] [place] [address] Phone Care Team Providers Care Gun Club Manager Name Role Phone Derek Sanchez MD Primary Care Provider [phone] hSad Saunders MD Unavailable [phone] Reason for Visit * Reason Onset Date Comments Medication Refill 11/08/2019 Encounter Details Date Type Department Care Team (Late st Contact Info) Description 11/08/2019 Refill [facility] Medicine [facility] #2 [place] [address] Derek Sanchez MD #[address] [address] Medication Refill Social History Tobacco Use Types [...] Telephone Encounter - Derek Sanchez MD - 11/08/2019 9:51 AM CDT Prescription pending signature * Telephone Encounter - Josefa Marrero RN - 11/08/2019 9:48 AM CDT AMAIRANI: 11-06-2019 Next OV: 02-03-2020 for lab 02-10-2020 OV * Telephone Encounter - Alexis Andre - 11/08/2019 8:55 AM CDT Name of Medication: fentaNYL (DURAGESIC) 100 MCG/HR PATCH 72 HR Pharmacy/location for refill to be sent to (if is not a written script)? [facility] in [place], [place] 30 or 90 day supply? 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
--- OUTSIDE RECORDS SUMMARY | 2024-08-27 14:20 | XMS_ITS | Encounter Summary ---
Author Organization [facility] Address [address] [place] [address] Phone Care Team Providers Care Cap Cutter Name Role Phone Derek Sanchez MD Primary Care Provider [phone] Shad Saunders MD Unavailable [phone] Reason for Visit * Reason Comments Medication Refill Encounter Details Date Type Department Care Team (Late st Contact Info) Description 01/15/2024 Refill [facility] [address]2 [place] [address] Derek Sanchez MD #[address] [address] Medication Refill Social History Tobacco Use Types Packs/Day Years Used Date Smoking Tobacco: Never Smokeless Tobacco: Never Alcohol Use Standard Drinks/Week Comments No 0 (1 standard drink = 0.6 oz pur e alcohol) [facility] Utilities Answer Date Recorded In the past 12 months has [employer] electric, gas, oil, or water company threatened to shut off services in your home? No 01/03/2024 Social Connection and Isolation Panel Answer Date Recorded In a typical week, how many times do you talk on the phone with family, friends, or neighbors? Never 01/03/2024 How often do you get together with friends or re latives? Never 01/03/2024 Attends [employer] Services Not on file 11/13 /2024 Active [...] Total Score - Questions 1-9 0 12/21 [facility] - Occupational Stress [...] any time in the past 12 m [facility], were you homeless or living in a usp (including now)? No 01/03/2024 Education Answer Date [...] Telephone Encounter - Tesha Gurrola RN - 01/15/2024 2:37 PM CST Signed 3 days ago (01/12/2024): promethazine (PHENERGAN) 25 MG Tablet Sig: Take 1 Tablet by mouth every 6 hours as needed for Nausea - 1st line. Disp: 30 Tablet Refills: 4 Signed by: Derek Sanchez MD PATIONAL THERAPY AIDE documented in this encounter Plan of Treatment Not on file documented as of this encounter Visit Diagnoses Not on filedocumented in this encounter Additional Health Concerns Infection Onset Date Last Indicated Resolved Time COVID - 19 08/09/2024 08/09/2024 08/10/2024 1:39 AM CDT Assessment Noted Time PHQ-9 Depression Total Score: 0 01/03/20 24 11:07 AM OCCUPATIONAL THERAPY AIDE documented as of this encounter Care Teams Cap Cutter Relationship Specialty Start Date End Date Derek Sanchez MD [address] [address] PCP - General Family Medicine 10/01/15 Shad Saunders MD #[id number] [address] General Surgery 08/11/16 documented as of this encounter
--- OUTSIDE RECORDS SUMMARY | 2024-08-27 14:20 | XMS_ITS | Encounter Summary ---
Author Organization [facility] Address [address] [place] [address] Phone Care Team Providers Care Wallpaper Hanger Helper Name Role Phone Derek Sanchez MD Primary Care Provider [phone] Shad Saunders MD Unavailable [phone] Reason for Visit * Reason Comments Medication Refill Encounter Details Date Type Department Care Team (Late st Contact Info) Description 12/23/2022 Refill [facility] Family [facility] #2 [place] [address] Derek Sanchez MD #[address] [address] Medication Refill Social History Tobacco Use Types [...] Recorded In the last 10 days, have emir u been in contact with someone who was confirmed or suspected to have Coronavirus/COVID-19? No / Unsure 12/16/2022 1:47 PM CDT documented as of this encounter Miscellaneous Notes * Telephone Encounter - Tesha Gurrola RN - 12/23/2022 4:39 PM CDT Medication failed the protocol, provider to review and approve the medication order if appropriate. Requested Prescriptions Pending Prescriptions Disp Refills traZODone (DESYREL) 50 MG Tablet [Pharmacy Med Name: TRAZODONE 50MG TABLETS] 90 Tablet 1 Sig: TAKE 1 TABLET BY MOUTH EVERY NIGHT Serotonin Modulators (6 Month Refill Only) Protocol Failed - 12/23/2022 3:24 PM Failed - Has an encounter in the past 6 months with a depression or anxiety visit diagnosis Passed - Visit with relevant provider in past 6 months or upcoming 90 days Recent Visits Date Type Provider Dept 12/16/22 Office Visit Tyesha Paez APRN, PRINTER OPERATOR [facility] 06/30/22 Office Visit Derek Sanchez MD [facility] Showing recent visits within past 182 days [...] documented as of this encounter Care Teams Wallpaper Hanger Helper Relationship Specialty Start Date End Date Derek Sanchez MD #[address] [address] PCP - General Family Medicine 10/01/15 Shad Saunders MD #[address] [address] General Surgery 08/11/16 documented as of this encounter
--- OUTSIDE RECORDS SUMMARY | 2024-08-27 14:20 | XMS_ITS | Encounter Summary ---
Author Organization [facility] Address [address] [place] [address] Phone Care Team Providers Care Sourcing Manager Name Role Phone Derek Sanchez MD Primary Care Provider [phone] Shad Saunders MD Unavailable [phone] Reason for Visit * Reason Onset Date Comments Medication Refill 03/05/2020 Encounter Details Date Type Department Care Team (Late st Contact Info) Description 03/05/2020 Refill [facility] [address] [place] [address] Derek Sanchez MD #[address] [address] Medication Refill Social History Tobacco Use Types [...] have Coronavirus / COVID-19? No / Unsure 03/04/2020 9:36 AM INTENSIVE CARE SPECIALIST documented as of this encounter Plan of Treatment Not on file documented as of this encounter Visit Diagnoses Not on filedocumented in this encounter Additional Health Concerns Infection Onset Date Last Indicated Resolved Time COVID - 19 05/14/2020 05/14/2020 05/16/2020 6:29 AM CDT COVID - 19 01/30/2021 01/30/2021 01/30/2021 1:58 PM INTENSIVE CARE SPECIALIST Respiratory Rule Out - RPA 01/30/2021 01/30/2021 1 04/03/2020 6:15 PM INTENSIVE CARE SPECIALIST COVID - 19 08/09/2024 08/09/2024 08/10/2024 1:39 AM CDT Assessment Noted Time PHQ-9 Depression Total Score: 13 11/05/ 020 1:45 PM CDT documented as of this encounter Care Teams Sourcing Manager Relationship Specialty Start Date End Date Derek Sanchez MD [id number] [address] PCP - General Family Medicine 10/01/15 Shad Saunders MD #[address] [address] General Surgery 08/11/16 documented as of this encounter
--- OUTSIDE RECORDS SUMMARY | 2024-08-27 14:20 | XMS_ITS | Encounter Summary ---
Author Organization [facility] Address [address] [place] [address] Phone Care Team Providers Care Electroplating Sales Representative Name Role Phone Derek Sanchez MD Primary Care Provider [phone] Shad Saunders MD Unavailable [phone] Reason for Visit * Reason Onset Date Comments Medication Refill 09/24/2019 norco Encounter Details Date Type Department Care Team (Late st Contact Info) Description 09/24/2019 Refill [facility] #2 [place] [address] Derek Sanchez MD #[address] [address] Medication Refill (norco ) Social History Tobacco Use Types Packs/Day Years Used Date Smoking Tobacco: Never Smokeless Tobacco: Never Alcohol Use Standard Drinks/Week Comments No 0 (1 standard drink = 0.6 oz pur e alcohol) PHQ-2 Answer Date Recorded PHQ-2 Score 1 08/06/2019 Sexually Active Control Partners Comments Yes Female [...] have Coronavirus / COVID-19? No / Unsure 09/21/2019 6:41 PM CDT documented as of this encounter Miscellaneous Notes * Telephone Encounter - Derek Sanchez MD - 09/26/2019 11:01 AM CDT Prescription pending signature * Telephone Encounter - Josefa Marrero RN - 09/26/2019 10:31 AM CDT AMAIRANI: 08-06-2019 Next OV: 11-06-2019 * Telephone Encounter - Nelly Lima - 09/26/2019 9:30 AM CDT Patient calling about refill status. The wrong medication was pended. Patient requesting refill on norco. * Telephone Encounter - Bev Jones - 09/24/2019 5:35 PM CDT Medication pended * Telephone Encounter - Shital Velazco - 09/24/2019 2:38 PM CDT Name of Medication: HYDROcodone-acetaminophen (NORCO) 7.5-325 MG Tablet Pharmacy/location for refill to be sent to (if is not a written script)? [id number] [place] [address] AT [facility] 30 or 90 day supply? 30 documented [...] - 19 01/30/2021 01/30/2021 01/30/2021 1:58 PM BLOCK SAWYER Respiratory Rule Out - RPA 01/30/2021 01/30/2021 1 04/03/2020 6:15 PM BLOCK SAWYER COVID - 19 08/09/2024 08/09/2024 08/10/2024 1:39 AM CDT Assessment Noted Time PHQ-9 Depression Total Score: 1 08/06/19 8:56 AM CDT documented as of this encounter Care Teams Electroplating Sales Representative Relationship Specialty Start Date End Date Derek Sanchez MD [id number] [address] PCP - General Family Medicine 10/01/15 Shad Saunders MD #[address] [address] General Surgery 08/11/16 documented as of this encounter
--- OUTSIDE RECORDS SUMMARY | 2024-08-27 14:21 | XMS_ITS | Encounter Summary ---
Author Organization [facility] Address [address] [place] [address] Phone Care Team Providers Care Yard Switch Operator Name Role Phone Derek Sanchez MD Primary Care Provider [phone] Shad Saunders MD Unavailable [phone] Encounter Details Date Type Department Care Team (Late st Contact Info) Description 08/22/2024 Telephone [facility] #2 [place] [address] Derek Sanchez MD #[address] [address] Social History Tobacco Use Types Packs/Day Years Used Date Smoking Tobacco: Never Smokeless Tobacco: Never Alcohol Use Standard Drinks/Week Comments No 0 (1 standard drink = 0.6 oz pur e alcohol) [facility] Utilities Answer Date Recorded In the past 12 months has [employer] electric, gas, oil, or water company threatened to shut off services in your home? No 01/03/2024 Social Connection and Isolation Panel Answer Date Recorded In a typical week, how many times do you talk on the phone with family, friends, or neighbors? Never 01/03/2024 How often do you get together with friends or re latives? Never 01/03/2024 Attends [employer] Not on file 01/02 Active Member of Clubs or Organizations Not [...] Total Score - Questions 1-9 0 12/21 [facility] of Occupat ional Health - Occupational Stress [...] any time in the past 12 m [facility], were you homeless or living in a [facility]p (including now)? No 01/03/2024 Education Answer Date [...] encounter Miscellaneous Notes * Telephone Encounter - Tamara Lino RN - 08/22/2024 3:18 PM CDT Received fax from [employer] asking for office notes form within the last 6 months for his continuousglucose monitoring supplies. Patient has not been here in the last 6 months. Please call and get him scheduled. documented in this encounter Plan of Treatment Not on file documented as of this encounter Visit Diagnoses Not on filedocumented in this encounter Additional Health Concerns Assessment Noted Time PHQ-9 Depression Total Score: 0 01/03/20 24 11:07 AM BEHAVIORAL SCHOOL COUNSELORS documented as of this encounter Care Teams Yard Switch Operator Relationship Specialty Start Date End Date Derek Sanchez MD #[address] [address] PCP - General Family Medicine 10/01/15 Shad Saunders MD #[address] [address] General Surgery 08/11/16 documented as of this encounter
--- OUTSIDE RECORDS SUMMARY | 2024-08-27 14:21 | XMS_ITS | Clinical Summary ---
Author Organization [facility] Address [address] [place] [address] Care Team Providers Care Auto Porter Name Role Phone Derek Sanchez MD Primary Care Provider [phone] Allergies Active Allergy Reactions Criticality Noted Date Comments Metronidazole Other (See comments),Swelling Reaction: OTHER, , Reaction: swelling, , , Medications insulin glargine (LANTUS) 100 unit/mL injection inject 7 units subcutaniously at bedtime 1 vial 3 5 Active Additional Information Patient not taking.Reported on 12/29/2016 loperamide (IMODIUM) 2 mg capsule take 4 capsules 3 times daily 0 0 5 Active Additional Information Patient not taking.Reported on 04/26/2018 predniSONE (DELTASONE) 20 mg tablet take 2 (0.5MG/KG) by ORAL route every day 60 6 4 Active Additional Information Patient not taking.Reported on 12/29/2016 hyoscyamine (LEVSIN/SL) 0.125 mg SL tablet take 1 by Sublingual route every 3 hours PRN 90 6 2 Active metFORMIN (GLUCOPHAGE) 1,000 mg tablet take 1 tablet by oral route 2 times every day with morning and evening meals 0 0 4 Active Additional Information Patient not taking.Reported on 12/29/2016 clonazePAM (KlonoPIN) 0.5 mg tablet take 1 tablet by ORAL route twice a day 60 2 4 Active Additional Information Patient not taking.Reported on 06/22/2017 oxyCODONE (ROXICODONE) 5 mg immediate release tablet take 2 tablet by oral route every 4 - 6 hours as needed 240 0 4 Active Additional Information Patient not taking.Reported on 12/29/2016 famotidine (PEPCID) 20 mg tablet take 1 tablet by oral route 2 times every day 62 1 4 Active Additional Information Patient not taking.Reported on 04/26/2018 HYDROcodone-ac etaminophen (NORCO) 7.5-325 mg per tabletIndicati ons:Pain Take 1 tablet by mouth every 6 (six) hours as needed for pain. Active fentaNYL (DURAGESIC) 75 mcg/hr Place 1 patch on the skin every third day. Active cholecalcifero l (VITAMIN D-3) 50,000 unit capsule Take 50,000 Units by mouth once a week. Active b complex vitamins capsule Take 1 capsule by mouth daily. Active ferrous sulfate 325 mg (65 mg of elemental iron) tabletIndicati ons:Iron Deficiency Anemia Take 65 mg of elemental iron by mouth 2 (two) times a day. Active atorvastatin (LIPITOR) 40 mg tablet Take 40 mg by mouth daily. Active sertraline (ZOLOFT) 50 mg tablet Take 50 mg by mouth daily. Active losartan-hydro chlorothiazide (HYZAAR) 100-25 mg per tablet Take 1 tablet by mouth daily . Active traZODone (DESYREL) 50 mg tablet Take 50 mg by mouth nightly . Active aspirin 81 mg tablet Take 81 mg by mouth daily . Active ginkgo biloba 120 mg tablet Take 1 tablet by mouth daily . Active amoxicillin-cl avulanate (AUGMENTIN) 500-125 mg per tabletIndicati ons:Skin/Soft Tissue Infection Take 1 tablet by mouth daily Indications: Skin/Soft Tissue Infection. 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 Myocardial infarction 07/29/2013 Fungemia 07/29/2013 Bacteremia 07/29/2013 Encounters Date Type Department Care Team Description 07/05/2024 6:48 PM CDT - 07/05/2024 7:43 PM CDT Emergency [facility] Emergency Department [address] [place] [address] Discharge Disposition: Left without being seen 07/05/2024 6:30 PM CDT - 07/05/2024 11:59 PM CDT Hospital Encounter [facility] Emergency, Room R Discharge Disposition: Discharge to home or self care from Last 3 Months Surgical History Surgery Date Site/Laterality Comments APPENDECTOMY 1994 Appendectomy BIOPSY DEEP BONE 11/21/2013 N/A BIOPSY DEEP BONE 10/08/2013 N/A ABSCESS TUBE EXCHANGE 10/27/2015 N/A ABSCESS CATHETER INJECTION 10/27/2015 N/A ABSCESS TUBE EXCHANGE 09/29/2015 N/A ABSCESS CATHETER INJECTION 09/29/2015 N/A ABSCESS CATHETER INJECTION 08/28/2015 N/A ABSCESS CATHETER INJECTION 07/28/2015 N/A ABSCESS CATHETER INJECTION 06/24/2015 N/A ABSCESS TUBE EXCHANGE 06/10/2015 N/A ABSCESS CATHETER INJECTION 06/10/2015 N/A ABSCESS CATHETER INJECTION 03/24/2015 N/A ABSCESS TUBE EXCHANGE 03/24/2015 N/A ABSCESS CATHETER INJECTION 03/04/2015 N/A ABSCESS CATHETER INJECTION 01/07/2015 N/A ABSCESS CATHETER INJECTION 12/17/2014 N/A ABSCESS TUBE EXCHANGE 11/25/2014 N/A ABSCESS CATHETER INJECTION 11/25/2014 N/A ABSCESS TUBE EXCHANGE 11/07/2014 N/A ABSCESS CATHETER INJECTION 11/07/2014 N/A ABSCESS CATHETER INJECTION 10/28/2014 N/A ABSCESS CATHETER INJECTION 10/06/2014 N/A ABSCESS CATHETER INJECTION 09/12/2014 N/A ABSCESS CATHETER INJECTION 09/03/2014 N/A ABSCESS CATHETER INJECTION 09/03/2014 N/A CT GUIDED DRAINAGE PERITONEA L OR RETROPERITONEAL FLUID COLLECTION 08/25/2014 N/A CT GUIDED DRAINAGE PERITONEA L OR RETROPERITONEAL FLUID COLLECTION 08/25/2014 N/A CENTRAL LINE PLACEMENT > 5 YEARS 03/26/2014 N/A ABSCESS CATHETER INJECTION 01/04/2016 N/A ABSCESS CATHETER INJECTION 12/26/2015 N/A ABSCESS TUBE EXCHANGE 12/26/2015 N/A ABSCESS CATHETER INJECTION 11/24/2015 N/A ABSCESS CATHETER INJECTION 04/01/2016 N/A ABSCESS CATHETER INJECTION 03/24/2016 N/A US SOFT TISSUE ABSCESS DRAIN 02/19/2016 N/A Medical History Medical History Date Comments Crohn's disease (HCC) Crohn's di sease Type 2 diabetes mellitus (HCC) D iabetes type 2 Calculus of kidney Nephrolithias is Hypertension Family History Medical History Relation Name Comments Diabetes type II Father Diabetes me llitus type 2; Heart attack Father heart attack; Heart disease Father Family history of cardiac disorder - (Added by TW Conv) Hypertension Father Hypertension; Stroke Father Family history of cerebrovascular accident - (Added by TW Conv) Diabetes type II Mother 2 Diabetes me llitus type 2; Other Mother 2 drowning; Cause of : drowning Stroke Mother 2 Family history of cerebrovascular accident - (Added by TW Conv) Heart disease Other Family history of cardiac disorder - (Added by TW Conv) Stroke Other Family history of cerebrovascular accident - (Added by TW Conv) Relation Name Status Comments Father Mother 1 (Age 68) Mother 2 Other Social History Tobacco Use Types Packs/Day Years Used Date Smoking Tobacco: Never Smokeless Tobacco: Never Tobacco Cessation:Counseling Given: Not Answered Alcohol Use Standard Drinks/Week Comments No 0 (1 standard drink = 0.6 oz pur e alcohol) Personal Safety Answer Date Recorded Have you ever been in or are you currently in a harmful physical or emotional relationship or is someone making you feel afraid or unsafe? 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 Gender Identity Not on file Sexual Orientation Not on file Obstetrics History Last Filed Vital Signs Vital Sign Reading Time Taken Comments Blood Pressure 159/74 10/19/2022 9:30 AM CDT Pulse 91 10/19/2022 9:30 AM CDT Temperature 36.9 C (98.4 F) 10/19/2022 7:30 AM CDT Respiratory Rate 18 10/19/2022 7:30 AM CDT Oxygen Saturation 98% 10/19/2022 9:30 AM CDT Inhaled Oxygen Concentration - - Weight 79.4 kg (175 lb) 10/19/2022 7:33 AM CDT Height 160 cm (5' 3) 10/19/2022 7:33 AM CDT Body Mass Index 31 10/19/2022 7:33 AM CDT Plan of Treatment Health Maintenance Due Date Last Done Comments Depression Screening 1955 Fall Risk Assessment 1955 Hepatitis C Screening 1955 Prostate Cancer Screening-PSA 1955 DTaP/Tdap/Td Vaccine (1 - Tdap) 1966 Hepatitis B Screening 1973 Zoster Vaccine (1 of 2) 2005 Well Visit 65+ 02/29/2020 Colon Cancer Screening-Colonoscopy 08/04/2021 08/05/2011 Covid-19 Vaccine (3 - 2023-2 5 season) 2023 07/10/2020, 06/09/2020 Pneumococcal vaccine 65+ (3 of 3 - PCV20 or PCV21) 04/30/2024 05/01/2019, 11/28/2018 Influenza Vaccine (Season Ended) 2024 04/01/2022, 01/11/2021, 11/06/2019, Additional history exists Colon Cancer Screening-CT Colonography Discontinued 08/05/2011 Colon Cancer Screening-DNA Stool Discontinued 08/05/19 12 Colon Cancer Screening-FIT Discontinued 08/05/2011 Colon Cancer Screening-Sigmoidoscopy Discontinued 08/05/2011 Abdominal Aortic Aneurysm (A AA) Screen Completed 02/03/2021, 09/19/2020, 05/14/2020, Additional history exists Procedures Procedure Name Priority Date/Time Associated Diagnosis Comments CT ABDOMEN PELVIS W CONTRAST Routine 03/24/2016 6:18 PM ORACLE FUSION DEVELOPER COLONOSCOPY 08/05/2011 12:00 AM CDT from Last 3 Months or Most Recently Relevant to Health Maintenance Results * CT Abdomen Pelvis W Contrast (03/24/2016 6:18 PM ORACLE FUSION DEVELOPER) Anatomical Region Laterality Modality Body N/A Computed Tomogra phy 03/24/2016 6:18 PM ORACLE FUSION DEVELOPER Narrative 03/25/2016 9:44 AM ORACLE FUSION DEVELOPER KALEE CORDOVA M.D. ANNA MARIE HORTON M.D. FINAL REPORT The radiology attending physician has personally reviewed this study, and has reviewed and/or edited this written report and agrees with it. ACC# Date Time Exam [id number] Mar 24, 2016 18:18:[id number] Abd & Pelvis with cont ACC# Date Time Exam [id number] Mar 24, 2016 18:18:[id number] Abd & Pelvis with cont EXAMINATION: CT abdomen and pelvis with contrast HISTORY: 61-year-old man Crohn disease complicated by interior abdominal wall abscess status post drainage. TECHNIQUE: Computed tomographic images of the abdomen pelvis are obtained after the uneventful administration of 94 mL Optiray-350 intravenous contrast according to the standard protocol. FINDINGS: Comparison is made to the examination performed at [facility] on 02/18/2016. There is mild bibasilar atelectasis. Process is normal. There is no pericardial effusion. There is a pigtail catheter in the anterior abdominal wall fluid collection is markedly decreased in size and compared to the prior examination. There is extensive soft tissue thickening in the anterior abdominal wall, but no longer is a rim-enhancing fluid collection. Small bowel adjacent to the anterior wall but no evidence of enterocutaneous fistula. Hepatic parenchyma is normal. The portal vein is patent. Hepatic pressure is classic. The gallbladder, vitreous, spleen, adrenal glands, and right kidney are normal. There nonobstructing stones in the interpolar region of the left kidney. There is contrast within the colon, correlate with ingested material. The small bowel and colon are normal in course and caliber without inflammation or obstruction. Operative changes of partial colectomy and small bowel anastomosis is again noted. There are small mesenteric and retroperitoneal lymph nodes are similar in size to the prior examination and are likely reactive. No free fluid or gas the abdomen or pelvis. There bilateral fat containing inguinal hernias. Bladder is normal. There is marked wedging and partial fusion of the T9 and T10 vertebral bodies is chronic appearing and unchanged when compared to the prior examination. No lytic blastic osseous lesions or fractures. IMPRESSION: Pigtail catheter in the anterior abdominal wall with soft tissue stranding and thickening in the anterior wall with a few scattered foci of gas. There is no rim-enhancing fluid collection. Requested By: DARRELL HARRIS Dictated By: ANNA MARIE HORTON M.D. on Mar 25 2016 7:52A This document has been electronically signed by: KALEE CORDOVA M.D. on Mar 25 2016 9:44A [id number] Procedure Note Provider, MD Nikki - 06/27/2016 KALEE CORDOVA M.D. ANNA MARIE HORTON M.D. FINAL REPORT The radiology attending physician has personally reviewed this study, and has reviewed and/or edited this written report and agrees with it. ACC# Date Time Exam [id number] Mar 24, 2016 18:18:[id number] Abd & Pelvis with cont ACC# Date Time Exam [id number] Mar 24, 2016 18:18:[id number] Abd & Pelvis with cont EXAMINATION: CT abdomen and pelvis with contrast HISTORY: 61-year-old man Crohn disease complicated by interior abdominal wall abscess status post drainage. TECHNIQUE: Computed tomographic images of the abdomen pelvis are obtained after the uneventful administration of 94 mL Optiray-350 intravenous contrast according to the standard protocol. FINDINGS: Comparison is made to the examination performed at [facility] on 02/18/2016. There is mild bibasilar atelectasis. Process is normal. There is no pericardial effusion. There is a pigtail catheter in the anterior abdominal wall fluid collection is markedly decreased in size and compared to the prior examination. There is extensive soft tissue thickening in the anterior abdominal wall, but no longer is a rim-enhancing fluid collection. Small bowel adjacent to the anterior wall but no evidence of enterocutaneous fistula. Hepatic parenchyma is normal. The portal vein is patent. Hepatic pressure is classic. The gallbladder, vitreous, spleen, adrenal glands, and right kidney are normal. There nonobstructing stones in the interpolar region of the left kidney. There is contrast within the colon, correlate with ingested material. The small bowel and colon are normal in course and caliber without inflammation or obstruction. Operative changes of partial colectomy and small bowel anastomosis is again noted. There are small mesenteric and retroperitoneal lymph nodes are similar in size to the prior examination and are likely reactive. No free fluid or gas the abdomen or pelvis. There bilateral fat containing inguinal hernias. Bladder is normal. There is marked wedging and partial fusion of the T9 and T10 vertebral bodies is chronic appearing and unchanged when compared to the prior examination. No lytic blastic osseous lesions or fractures. IMPRESSION: Pigtail catheter in the anterior abdominal wall with soft tissue stranding and thickening in the anterior wall with a few scattered foci of gas. There is no rim-enhancing fluid collection. Requested By: DARRELL HARRIS Dictated By: ANNA MARIE HORTON M.D. on Mar 25 2016 7:52A This document has been electronically signed by: KALEE CORDOVA M.D. on Mar 25 2016 9:44A [id number] Historical Provider MD RAMIREZ CT PROCEDURES Final R esult * COLONOSCOPY (08/05/2011 12:00 AM CDT) Anatomical Region Laterality Modality Other Narrative 08/05/2011 12:00 AM CDT Ordered by an unspecified provider. Procedure Note Provider, MD Nikki - 08/05/2011 12:00 AM CDT PROCEDURE REPORT Patient: JENNIFER PEREZ Account: [id number] Room No: : 1955 Patient Type: SDS Attend.: Fei Merida M.D. Admit Date: 08/05/2011 Dict.: Fei Merida M.D. Disch. Date:08/05/2011 NAME OF PROCEDURE: Colonoscopy. DATE OF PROCEDURE: August 05, 2011. HISTORY: This is a 56-year old male with a history of Crohn's disease.He has had a rectal fistula. He has had two operations for resection of parts ofhis colon as well as of his small bowel. The last operation was in 1996. Atthis time he seems to have eight or nine loose stools per day and says that hejust seems to be coping with it. PHYSICAL EXAMINATION: Obese male. Lungs are clear. Cardiovascularexamination is unremarkable. PROCEDURE: Colonoscopy was performed with the [employer]btogs video endoscope.The patient was premedicated by Anesthesia. On digital examination there isquite a bit of anal deformity with the scope. I was not able to demonstrateany active inflammatory changes in the anus. We advanced the endoscope and inthe proximal descending there is a localized area of aphthous ulcers and inflammatory change but otherwise the mucosa appears to be entirelynormal except for that isolated area. We went from there to the ileocolonic anastomosis which appears to be in the right lower quadrant. I was unableto get into the TI. That area might be strictured. There are aphthousulcers on the small bowel mucosa that I was able to see with active inflammatorychanges. We removed the endoscope and carefully searched the colonic mucosa. Noother abnormalities were noted. He tolerated the procedure withoutdifficulty. POSTOPERATIVE DIAGNOSIS: 1. Visible active Crohn's disease of the ileocolonic anastomosis onthe small bowel mucosa and in the isolated area in the proximaldescending. 2. Anal deformity with no active ulceration there. PLAN: I would recommend that the patient discuss symptoms and treatment options with me in my office. Fei Merida M.D. 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
--- OUTSIDE RECORDS SUMMARY | 2024-08-27 14:21 | XMS_ITS | Encounter Summary ---
Author Organization [facility] Address [address] [place] [address] Phone Care Team Providers Care Welt Rougher Name Role Phone Derek Sanchez MD Primary Care Provider [phone] Shad Saunders MD Unavailable [phone] Reason for Visit * Reason Onset Date Comments Medication Refill 04/22/2020 norco Encounter Details Date Type Department Care Team (Late st Contact Info) Description 04/22/2020 Refill [facility] [address] [place] [address] Derek Sanchez MD [address] [address] Medication Refill (norco) Social History Tobacco Use Types Packs/Day Years [...] Telephone Encounter - Derek Sanchez MD - 04/22/2020 1:46 PM CST Prescription pending signature ROLLER INSTRUCTOR * Telephone Encounter - Tesha Gurrola RN - 04/22/2020 1:35 PM CST Medication failed the protocol, provider to review and approve the medication order if appropriate. Requested Prescriptions Pending Prescriptions Disp Refills HYDROcodone-acetaminophen (NORCO) 7.5-325 MG Tablet 60 Tablet 0 Sig: Take 1 Tablet by mouth every 6 hours as needed for Moderate or more severe pain. Not Delegated - Analgesics: Opioid Agonist Combinations Failed - 04/22/2020 12:19 PM Failed - This refill cannot be delegated Passed - Valid encounter within last 6 months Past Office Visits Recent Outpatient Visits 1 month ago Chronic midline low back pain without sciatica [facility] Derek Cordero MD 1 month ago Shortness of breath [facility] Derek Cordero MD 2 months ago Pure hypercholesterolemia [facility] Derek Cordero MD 4 months ago Essential hypertension [facility] Derek Cordero MD 5 months ago Essential hypertension [facility] Derek Cordero MD Upcoming Appointments Future Appointments In 1 week [facility], [facility], [facility] In 2 weeks Derek Sanchez MD [facility] JAMES Duran BUSINESS OBJECTS REPORT DEVELOPER - Recent and Past Visits Recent Visits Date Type Provider Dept 03/10/20 Office Visit Derek Sanchez MD [facility] 03/04/20 Office Visit Derek Sanchez MD [facility] 02/10/20 Office Visit Derek Sanchez MD [facility] 12/13/19 Office Visit Derek Sanchez MD [facility] 11/13/19 Office Visit Derek Sanchez MD [facility] 11/06/19 Office Visit Derek Sanchez MD [facility] 08/06/19 Office Visit Derek Sanchez MD [facility] 04/25/19 Office Visit Derek Sanchez MD [facility] Showing recent visits within past 460 days with a meds authorizing provider and meeting all other requirements Future Appointments Date Type Provider Dept 05/11/20 Appointment Derek Sanchez MD [facility] Showing future appointments within next 90 days with a meds authorizing provider and meeting all other requirements ROLLER INSTRUCTOR * Telephone Encounter - Chayito Garibay RN - 04/22/2020 12:15 PM CST is calling to request a refill of [place] 7.5-325. Pharmacy verified. ROLLER INSTRUCTOR documented in this encounter Plan of Treatment Not on file documented as of this encounter Visit Diagnoses Not on filedocumented in this encounter Additional Health Concerns Infection Onset Date Last Indicated Resolved Time COVID - 19 05/14/2020 05/14/2020 05/16/2020 6:29 AM CDT COVID - 19 01/30/2021 01/30/2021 01/30/2021 1:58 PM CONTROLLER INSTRUCTOR Respiratory Rule Out - RPA 01/30/2021 01/30/2021 1 04/03/2020 6:15 PM CONTROLLER INSTRUCTOR COVID - 19 08/09/2024 08/09/2024 08/10/2024 1:39 AM CDT Assessment Noted Time PHQ-9 Depression Total Score: 13 11/05/ 020 1:45 PM CDT documented as of this encounter Care Teams Welt Rougher Relationship Specialty Start Date End Date Derek Sanchez MD #[address] [address] PCP - General Family Medicine 10/01/15 Shad Saunders MD #[address] [address] General Surgery 08/11/16 documented as of this encounter
--- OUTSIDE RECORDS SUMMARY | 2024-08-27 14:21 | XMS_ITS | Referral Summary ---
Author Organization [facility] Address [address] [place] [address] Care Team Providers Care Slide Forming Machine Operator Name Role Phone Derek Sanchez MD Primary Care Provider [phone] Encounters Date Type Department Care Team Description 07/05/2024 6:30 PM CDT - 07/05/2024 11:59 PM CDT Hospital Encounter [facility] Emergency, Room R Discharge Disposition: Discharge to home or self care 07/05/2024 6:48 PM CDT - 07/05/2024 7:43 PM CDT Emergency [facility] Emergency Department [address] [place] [address] Discharge Disposition: Left without being seen from Last 3 Months Allergies Active Allergy Reactions Criticality Noted Date [...] Myocardial infarction 07/29/2013 Fungemia 07/29/2013 Bacteremia 07/29/2013 Social History Tobacco Use Types Packs/Day Years [...] on file Legal Sex 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 COMPOUNDER HELPER Gender Identity Not on file Sexual Orientation Not on file Last Filed Vital Signs Vital Sign Reading [...] 10/19/2022 7:33 AM CDT Plan of Treatment Not on file Procedures Procedure Name Priority Date/Time Associated Diagnosis Comments CT ABDOMEN PELVIS W CONTRAST Routine 03/24/2016 6:18 PM COMPOUNDER HELPER COLONOSCOPY 08/05/2011 12:00 AM CDT from Last 3 Months or Most Recently Relevant to Health Maintenance Results * CT Abdomen Pelvis W Contrast (03/24/2016 6:18 PM COMPOUNDER HELPER) Anatomical Region Laterality Modality Body N/A Computed Tomogra phy 03/24/2016 6:18 PM COMPOUNDER HELPER Narrative 03/25/2016 9:44 AM COMPOUNDER HELPER KALEE CORDOVA M.D. ANNA MARIE HORTON M.D. FINAL REPORT The radiology attending physician has personally reviewed this study, and has reviewed and/or edited this written report and agrees with it. ACC# Date Time Exam [id number] Mar 24, 2016 18:18:[id number] Abd & Pelvis with cont ACC# Date Time Exam [id number] Mar 24, 2016 18:18:[id number] Abd & Pelvis with cont EXAMINATION: CT abdomen and pelvis with contrast HISTORY: 61-year-old man Crohn disease complicated by interior abdominal wall abscess status post drainage. TECHNIQUE: Computed tomographic images of the abdomen pelvis are obtained after the uneventful administration of 94 mL Optiray-350 intravenous contrast according to the standard protocol. FINDINGS: Comparison is made to the examination performed at [facility] on 02/18/2016. There is mild bibasilar atelectasis. [...] CORDOVA M.D. on Mar 25 2016 9:44A [id number] Procedure Note Provider, MD Nikki - 06/27/2016 KALEE CORDOVA M.D. ANNA MARIE HORTON M.D. FINAL REPORT The radiology attending physician has personally reviewed this study, and has reviewed and/or edited this written report and agrees with it. ACC# Date Time Exam [id number] Mar 24, 2016 18:18:[id number] Abd & Pelvis with cont ACC# Date Time Exam [id number] Mar 24, 2016 18:18:[id number] Abd & Pelvis with cont EXAMINATION: CT abdomen and pelvis with contrast HISTORY: 61-year-old man Crohn disease complicated by interior abdominal wall abscess status post drainage. TECHNIQUE: Computed tomographic images of the abdomen pelvis are obtained after the uneventful administration of 94 mL Optiray-350 intravenous contrast according to the standard protocol. FINDINGS: Comparison is made to the examination performed at [facility] on 02/18/2016. There is mild bibasilar atelectasis. [...] no rim-enhancing fluid collection. Requested By: DARRELL HARRIS.N.P. Dictated By: ANNA MARIE HORTON M.D. on Mar 25 2016 7:52A This document has been electronically signed by: KALEE CORDOVA M.D. on Mar 25 2016 9:44A [id number] Historical Provider MD RAMIREZ CT PROCEDURES Final R esult * COLONOSCOPY (08/05/2011 12:00 AM CDT) Anatomical Region Laterality Modality Other Narrative 08/05/2011 12:00 AM CDT Ordered by an unspecified provider. Procedure Note Provider, MD Nikki - 08/05/2011 12:00 AM CDT PROCEDURE REPORT Patient: JENNIFER PEREZ Account: [id number] Room No: : 1955 Patient Type: [facility] Attend.: Fei Merida M.D. Admit Date: 08/05/2011 [...] unremarkable. PROCEDURE: Colonoscopy was performed with the [place] video endoscope.The patient was premedicated by Anesthesia. 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
--- OUTSIDE RECORDS SUMMARY | 2024-08-27 14:21 | XMS_ITS | Encounter Summary ---
Author Organization [facility] Address [address] [place] [address] Phone Care Team Providers Care Power House Control Room Operator Name Role Phone Derek Sanchez MD Primary Care Provider [phone] Shad Saunders MD Unavailable [phone] Reason for Visit * Reason Comments Medication Refill Encounter Details Date Type Department Care Team (Late st Contact Info) Description 03/28/2023 Refill [facility] - Family Medicine [facility] [address] [place] [address] Derek Sanchez MD [address] [address] Medication Refill Social History Tobacco Use Types [...] as of this encounter Care Teams Power House Control Room Operator Relationship Specialty Start Date End Date Derek Sanchez MD [address] [address] PCP - General Family Medicine 10/01/15 Shad Saunders MD [address] [address] General Surgery 08/11/16 documented as of this encounter
--- OUTSIDE RECORDS SUMMARY | 2024-08-27 14:21 | XMS_ITS | Encounter Summary ---
Author Organization [facility] Address [address] [place] [address] Phone Care Team Providers Care Wig Stylist Name Role Phone Derek Sanchez MD Primary Care Provider [phone] Shad Saunders MD Unavailable [phone] Reason for Visit * Reason Comments Medication Refill Encounter Details Date Type Department Care Team (Late st Contact Info) Description 07/17/2022 Refill [facility] - Family Medicine [facility] [address] [place] [address] Derek Sanchez MD [address] [address] Medication Refill Social History Tobacco Use Types Packs/Day Years Used Date Smoking Tobacco: Never Smokeless Tobacco: Never Alcohol Use Standard Drinks/Week Comments No 0 (1 standard drink = 0.6 oz pur e alcohol) PHQ-2 Answer Date Recorded Total Score - Questions 1-9 6 06/20 Education Answer Date Recorded What is the [...] suspected to have Coronavirus/COVID-19? No / Unsure 06/30/2022 12:01 PM CDT documented as of this encounter Miscellaneous Notes * Telephone Encounter - Nelly Jewell RN - 07/19/2022 11:20 AM CDT Per nursing clinical judgement, provider to review and approve the medication(s) order(s) if appropriate. Requested Prescriptions Pending Prescriptions Disp Refills traZODone (DESYREL) 50 MG Tablet [Pharmacy Med Name: TRAZODONE 50MG TABLETS] 90 Tablet 1 Sig: TAKE 1 TABLET BY MOUTH EVERY NIGHT Serotonin Modulators (6 Month Refill Only) Protocol Passed - 07/17/2022 3:11 AM Passed - Visit with relevant provider in past 6 months or upcoming 90 days Recent Visits Date Type Provider Dept 06/30/22 Office Visit Derek Sanchez MD [facility] 05/05/22 Office Visit Derek Sanchez MD [facility] 04/01/22 Office Visit Derek Sanchez MD [facility] 01/25/22 Office Visit Chaim Park APRN, CNP [facility] Showing recent visits within past 182 days and meeting all other requirements Future Appointments Date Type Provider Dept 10/06/22 Appointment Derek Sanchez MD [facility] Showing future appointments within next 90 days and meeting all other requirements Passed - Has an encounter in the past 6 months with a depression or anxiety visit diagnosis Passed - No PRN Use for Trazodone [...] Assessment Noted Time PHQ-9 Depression Total Score: 6 07/01/19 12:00 PM CDT documented as of this encounter Care Teams Wig Stylist Relationship Specialty Start Date End Date Derek Sanchez MD [address] [address] PCP - General Family Medicine 10/01/15 Shad Saunders MD [address] [address] General Surgery 08/11/16 documented as of this encounter
--- OUTSIDE RECORDS SUMMARY | 2024-08-27 14:21 | XMS_ITS | Encounter Summary ---
Author Organization [facility] Address [address] [place] [address] Phone Care Team Providers Care Accounts Specialist Name Role Phone Derek Sanchez MD Primary Care Provider [phone] Shad Saunders MD Unavailable [phone] Reason for Visit * Reason Onset Date Comments Advice Only 07/09/2024 Depression 07/09/2024 With recent suic idal ideations Abdominal Pain 07/09/2024 Diarrhea 07/09/2024 Dental Pain 07/09/2024 Headache 07/09/2024 With recent vomi ting Vision Change 07/09/2024 Encounter Details Date Type Department Care Team (Late st Contact Info) Description 07/09/2024 Nurse Triage [facility] [address] [place] [id number] Derek Sanchez MD [address] [address] Advice Only; Depression (With recent suicidal ideations); Abdominal Pain; Diarrhea; Dental Pain; Headache (With recent vomiting); Vision Change Social History Tobacco Use Types Packs/Day Years Used Date Smoking Tobacco: Never Smokeless Tobacco: Never Alcohol Use Standard Drinks/Week Comments No 0 (1 standard drink = 0.6 oz pur e alcohol) [facility] Utilities Answer Date Recorded In the past 12 months has th e electric, gas, oil, or water company threatened to shut off services in your home? No 01/03/2024 Social Connection and Isolation Panel Answer Date Recorded In a typical week, how many times do you talk on the phone with family, friends, or neighbors? Never 01/03/2024 How often do you get together with friends or re latives? Never 01/03/2024 Attends Confucianism Services Not on file 01/02 Active Member [...] Total Score - Questions 1-9 0 12/21 [facility] Occup[facility] ional [facility] - Occupational Stress [...] any time in the past 12 m [facility], were you homeless or living in a chcf (including now)? No 01/03/2024 Education Answer Date [...] encounter Miscellaneous Notes * Telephone Encounter - Tre Suggs RN - 07/09/2024 8:36 AM CDT SITUATION: Depression (with recent suicidal ideation), abdominal pain, diarrhea, toothache, headache, vomiting, and vision change BACKGROUND: Filiberto Perez contacting PCP office. His , Brielle, was also on the call with him at times. Filiberto reports that he has been dealing with depression over the last month or so. He states that depression symptoms are not new for him. He reports symptoms come and go. Patient reports that he takes Sertraline daily and has been taking it as ordered. Per chart review, last office visit: 01/16/24. History of anxiety, depression, and suicidal overdose. [facility] emergency department on 07/05/24 for depression/suicidal ideations. Patient left without being seen due to wait time. ASSESSMENT: Symptom Description / Location: Depression. Patient denies any current thoughts of hurting himself, but states that it's early (inthe day). He reports that he will likely have suicidal thoughts later in the day. He denies thoughts of harming anyone else. Patient able to answer questions appropriately Abdominal pain with diarrhea due to Crohn's per patient. Patient denies abdominal pain at present. Reports diarrhea daily is his normal. Toothache that radiates to right jaw. Patient states that he has an appointment on 07/11/24 to remove the tooth, but he will need to reschedule to next month, as he does not have the money to pay for it right now. He reports that he has a history of a heart attack. He denies this pain feeling like when he had that heart attack. Headache (frontal). Denies vomiting today, but reports vomiting multiple times on 07/07/24. Reports a black dot that moves in the right eye over the last 6 months. Patient unable find his blood pressure cuff to check his blood pressure while on this call. He reports that he has been taking his blood pressure medication as ordered. Current blood sugar at 0907 (while on this call) was 91 Denies chest pain, shortness of breath, or numbness or weakness of the face, arm, or leg on one side of the body Able to walk and bear weight without difficulty Pain: Toothache (into right jaw) 6-7/10, constant, throbbing Headache 8/10, constant, ache Fever: Denies fever. Treatment / Response: Aleve with complete resolution temporarily. Initial Assessment Questions 1. CONCERN: What happened that made you call today? Patient states that when he was working on his scooter on 07/05/24. He reports that nothing was going right that day and then he had trouble with the scooter. He then mentioned suicide to his . His called EMS. 2. DEPRESSION SYMPTOM SCREENING: How are you feeling overall? (e.g., decreased energy, increased sleeping or difficulty sleeping, difficulty concentrating, feelings of sadness, guilt, hopelessness,or worthlessness) Patient reports decreased energy, trouble sleeping, difficulty concentrating, and feelings of guilt. 3. RISK OF HARM - SUICIDAL IDEATION: Do you ever have thoughts of hurting or killing yourself? (e.g., yes, no, no but preoccupation with thoughts about ) Yes. Patient denies currently having thoughts of hurting or killing himself. He reports that he did have these thoughts on 5/16/25 and thinks it is a possibility that he will have them later in theday. - INTENT: Do you have thoughts of hurting or killing yourself right NOW? (e.g., yes, no, N/A). No per patient. - PLAN: Do you have a specific plan for how you would do this? (e.g., gun, knife, overdose, no plan, N/A) Patient denies any specific plans. 4. RISK OF HARM - HOMICIDAL IDEATION: Do you ever have thoughts of hurting or killing someone else? (e.g., yes, no, no but preoccupation with thoughts about ) - INTENT: Do you have thoughts of hurting or killing someone right NOW? (e.g., yes, no, N/A) Patient denies thoughts of hurting someone else. - PLAN: Do you have a specific plan for how you would do this? (e.g., gun, knife, no plan, N/A) N/A 5. FUNCTIONAL IMPAIRMENT: How have things been going for you overall? Have you had more difficultythan usual doing your normal daily activities? (e.g., better, same, worse; self-care, school, work, interactions) Patient reports that he is having difficulty doing his normal daily activities. He reports that he is taking care of himself. 6. SUPPORT: Who is with you now? Who do you live with? Do you have family or friends who you can talk to? and son with patient now. and son live with patient. Patient states he does not have any other family or friends who he can talk to. 7. THERAPIST: Do you have a counselor or therapist? If Yes, ask: What is their name? Patient states that he goes to [facility] for drug abuse. Patient states he is on Suboxone. Patientsees the counselor there every month. 8. STRESSORS: Has there been any new stress or recent changes in your life? Patient states that he has not had a car for the last 4 months and has to use public transportation. 9. ALCOHOL USE OR SUBSTANCE USE (DRUG USE): Do you drink alcohol or use any illegal drugs? Patient states that he does smoke pot, but denies alcohol use or any other drug use. 10. OTHER: Do you have any other physical symptoms right now? (e.g., fever) Patient denies any physical symptoms when asked. See above triage. RECOMMENDATION: Patient/caller refuses disposition of: GO to ED now. Patient states that he will go if he develops suicidal ideations again. He reports that he will have to call EMS since he does not have transportation. He sounds somewhat agreeable to going to an Urgent Care[facility] that is down the street instead. Patient response:Caller verbalized understanding of recommendations, but continues to refuse emergent disposition. Caller notified that provider will review encounter for further recommendations. Care advice provided per triage guideline. Caller verbalized understanding. Encounter routed to provider high priority to notify. Discussed utilizing [employer] to: discuss if they would prefer a ab&jb properties and servicest message or phone call response. Patient does not have miDrivehart access. Please call patient back. - See care advice and disposition for Guideline. First positive answer recorded, all responses to prior questions were negative. If symptoms increase, change or if new symptoms develop, call your health care provider or call back. Recommendations were based on caller information and is not a diagnosis. Verified and reviewed all triage information with caller. Reason for Disposition Headache or vomiting Severe pain in one eye Suicide thoughts, threats, attempts, or questions SEVERE diarrhea (e.g., 7 or more times / day more than normal) and age > 60 years SEVERE toothache pain (e.g., excruciating, unable to eat, unable to do any normal activities) Headache or pain in upper forehead Depression is main symptom and is not threatening suicide Depression and unable to do any of normal activities (e.g., self care, school, work; in comparison to baseline). Protocols used: Ebmctnkser-L-WA, Suicide Mzarzzlk-U-VV, Confusion - Pyqtsplr-A-ER, Scfrypho-R-WI, Frldonsfa-D-JB, Face Pain-A-OH, Kjvnafzt-C-SI * Telephone Encounter - Rajni Aquino - 07/09/2024 8:33 AM CDT Symptom: Depression Outcome: Warm transfer to an emergent RN NOW! Reason: Acting confused The caller accepted this outcome. documented in this encounter Plan of Treatment Not on file documented as of this encounter Visit Diagnoses Not on filedocumented in this encounter Additional Health Concerns Infection Onset Date Last Indicated Resolved Time COVID - 19 08/09/2024 08/09/2024 08/10/2024 1:39 AM CDT Assessment Noted Time PHQ-9 Depression Total Score: 0 01/03/20 24 11:07 AM CARE PROVIDER documented as of this encounter Care Teams Accounts Specialist Relationship Specialty Start Date End Date Derek Sanchez MD [address] [address] PCP - General Family Medicine 10/01/15 Shad Saunders MD #[address] [address] General Surgery 08/11/16 documented as of this encounter
--- OUTSIDE RECORDS SUMMARY | 2024-08-27 14:21 | XMS_ITS | Patient Health Record ---
Author Organization [facility] Address [address] [place] [address] Care Team Providers Care Airframe And Powerplant Mechanic Name Role Phone Alex Rojas Primary Care Provider [phone] Chikis Aly Unavailable [phone] Nani Thao Unavailable [phone] Yana De Unavailable [phone] Sheila Newton Unavailable [phone] Jennifer Mendoza Unavailable [phone] Allergies Allergen (clinical drug ingredient) Drug/Non Drug Allergy documented on EMR Reaction Allergy Type Onset Date Status Flagyl Unknown Drug Allergy Active Results Component Value Reference Range Notes 12 Panel Urine Drug Screen Reviewed date:05/31/2024 11:04:29 AM Interpretation: Performing Lab: Notes/Report: THC POS VERONICA neg MOP (OPI) neg AMP neg MET neg BAR neg BZO neg MDMA neg MTD neg OXY neg PCP neg BUP POS Buprenorphine and Metabolite (Urine test) Reviewed date:10/03/2023 08:35:58 AM Interpretation: Performing Lab:[facility], [address], [place], Phone - [phone], Director - PhDAbudu Notes/Report: Clinical Information:CCU:[id number] LM Buprenorphine Positive Confirmation p erformed by Mass Spectrometry Buprenorphine Positive Buprenorphine Conf, MS, UR 25 Cutoff=10 ng/m L Norbuprenorphine Positive Norbuprenorphine Conf, MS, UR 115 Cutoff=10 n g/mL 12 Panel Urine Drug Screen Reviewed date:09/28/2023 01:11:16 PM Interpretation: Performing Lab: Notes/Report: THC POS VERONICA neg MOP (OPI) neg AMP neg MET neg BAR neg BZO neg MDMA neg MTD neg OXY neg PCP neg BUP POS 12 Panel Urine Drug Screen Reviewed date:05/02/2024 01:20:30 PM Interpretation: Performing Lab: Notes/Report: THC POS VERONICA neg MOP (OPI) neg AMP neg MET neg BAR neg BZO neg MDMA neg MTD neg OXY neg PCP neg BUP POS 14 Panel Urine Drug Screen Reviewed date:08/02/2024 01:29:39 PM Interpretation: Performing Lab: Notes/Report: THC POS VERONICA neg MOP (OPI) POS AMP neg MET neg BAR neg BZO neg MDMA neg MTD neg OXY neg PCP neg BUP POS TCA neg FTY neg Reason For Referral Reason referral for psychia tric rosie, provider in network with insurance Diagnosis 1 Opioid use disorder (F11.99) Referral Organization [facility] Referring Provider First Name Yana Referring Provider Last Name Kenisha Referring Provider Speciality Psychiatry Referred Provider Specialty [facility] Clinical Notes Kathleen Mcgraw 08/07/2024 09:39:17 AM >HN called the client to provide him the number to call [facility] and to schedule a psych appointment. HN also provided a contact number for the client to call if he has any issues setting up his first psych appointment. The client had a female with him writing the information down so he could follow up with [facility] and get that appointment set. Referral Priority Routine Medications Medication SIG (Take, Route, Frequency, Duration) Notes Start Date End Date Status Losartan Potassium 100 MG 1 tablet Orall y Once a day Active Ferrous Sulfate 325 (65 Fe) MG 1 tablet Orally Three times a Week; Duration: 30 day(s) Not-Taking hydroCHLOROthiazide 25 MG 1 tablet in morning Orally Once a day Active Tamsulosin HCl 0.4 MG 1 capsule Orally twice a day Active Buprenorphine HCl-Naloxone HCl 8-2 MG 1 film under the tongue and allow to dissolve Sublingual three times daily; Duration: 30 days 08/02/2024 Active amLODIPine Besylate 10 MG 1 tablet Orall y Once a day Active Cholecalciferol 250 MCG ([address] UT) as directed Orally Not-Takin g Omeprazole 40 MG 1 capsule 1/2 to 1 hour before morning meal Orally Once a day Active Famotidine 20 MG 1 tablet at bedtime as needed Orally Once a day; Duration: 30 day(s) Not-Taking Zoloft 50 MG 1 tablet Orally Once a day; Duration: 30 day(s) Not-Taking Sertraline HCl 100 MG 1 tablet Orally Once a day Active Aspirin 81 81 MG 1 tablet Orally Once a day; Duration: 30 day(s) Active traZODone HCl 50 MG 1 tablet at bedtime as needed Orally Once a day; Duration: 30 day(s) Active Amoxicillin 500 MG 1 capsule Orally every 8 hrs; Duration: 5 day(s) Not-Taking Atorvastatin Calcium 40 MG 1 tablet Oral ly Once a day; Duration: 30 day(s) Not-Taking Social History Tobacco Use: Social History Observation Description Date Details (start date - stop date) Never Smoker NA - NA Sex Assigned At : Social History Observation Description Sex Assigned At Male Dont use, Tobacco Use/Smoking Question Answer Notes Are you a nonsmoker PRAPARE Question Answer Notes Date Completed/Updated: 09/28/2023 What is your current housing situation? I have h ousing Are you worried about losing your housing? No What is the highest level of school that you have finished? High school diploma or GED What is your current work situation? Oth erwise unemployed but not seeking work (ex. 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 Check all that apply I do not have problems meeting my needs Has lack of transportation k ept you from medical appointments, meetings, work or from getting things needed for daily living? Yes, it has kept me from medical appointments or from getting my medications,Yes, it has kept me from non-medical meetings, appointments, work, or getting things needed for daily living How often do you see or talk to people that you care about and feel close to? (For example: talking to friends on the phone, visiting friends or family, going to catholic or club meetings) More than 5 times a week How stressed are you? Stress is when someone feels tense, nervous, anxious, or can\t sleep at night because their mind is troubled A little bit In the past year have you sp ent more than 2 nights in a row in a nursing home, intermediate, long-term center, or juvenile correctional facility? No Are you a refugee? No What country are you from? [place] Do you feel physically and e motionally safe where you currently live? Yes In the past year, have you b een afraid of your partner or ex-partner? No PRAPARE Score: 7 Tobacco Control (Standard) Question Answer Notes Tobacco use: Nonsmoker Problems Problem Type SNOMED Code ICD Code Onset Dates Problem Status W/U Status Risk Notes Problem Opioid dependence (12381239) Opiate addiction (F11.20) Active confirmed Problem Overweight (242344441) Over weight (E66.3) Active confirmed Problem Obese class I (finding) (34469881955592 7) Obesity (BMI 30.0-34.9) (E66.9) Active confirmed Problem Obesity (543852650) Obesity, unspecified classification, unspecified obesity type, unspecified whether serious comorbidity present (E66.9) Active confirmed Problem Opioid use disorder (4928683131) Opioid use disorder (F11.99) Active confirmed Vital Signs Heart Rate 68 /min 08/02/2024 Respiratory Rate 16 /min 08/02/2024 Oximetry 95 % 08/02/2024 Blood pressure diastolic 62 mm Hg 08/02/2024 Height 63 in 08/02/2024 Blood pressure systolic 122 mm Hg 08/02/2024 Weight 184 lb 4 oz lbs 08/02/2024 BMI 32.63 kg/m2 08/02/2024 Encounters Encounter Location Date Provider Diagnosis [address] [address] 09/28/2023 Alex Rojas Opioid use disorder F11.99 ; Obesity (BMI 30.0-34.9) E66.9 and Nutritional counseling Z71.[address] [address] 09/28/2023 Nani Thao [address] [address] 05/02/2024 Sheila Newton Opioid use disorder F11.99 and Nutritional counseling Z71.[address] [address] 05/31/2024 Chikis Aly Opioid use disorder F11.99 and Obesity (BMI 30.0-34.9) E66.9 [facility] [address] [place] [address] 05/31/2024 Jennifer Mendoza [address] [place] [address] 08/02/2024 Yana De Opioid use disorder F11.99 and Over weight E66.3 [facility] [address] [place] [address] 06/07/2024 Jennifer Mendoza Assessments Encounter Date Diagnosis (ICD Code) Assessment Notes Treatment Notes Treatment Clinical Notes Section Notes 09/28/2023 Obesity (BMI 30.0-34.9) (ICD-10 - E66.9) 09/28/2023 Opioid use disorder (ICD-10 - F11.99) 05/02/2024 Nutritional counseling (ICD-10 - Z71.3) 05/02/2024 Opioid use disorder (ICD-10 - F11.99) Fentanyl test strip - NEGATIVE Insufficient speciment to send out. 05/31/2024 Obesity (BMI 30.0-34.9) (ICD-10 - E66.9) 05/31/2024 Opioid use disorder (ICD-10 - F11.99) 08/02/2024 Opioid use disorder (ICD-10 - F11.99) May self-administer or be administered own oral medication per [facility] Protocols. Provided informed consent with understanding of side effects, risks and benefits as well as alternative treatments as previously discussed and with the above recommended medications ang other aspects of the treatment program. Agrees to return sooner if symptoms worsen or suicidal or homicidal ideations occur. support and education provided concerning illness and treatment plan, risks and benefits, pt verbalized understanding of the same and agreeable - presents via secure Zoom connection for MAT walk in clinic. Denies concerns, cravings, or missteps. - Feels Suboxone at current dose has been working well, prefers to continue with current dose - felt more depressed last week, doesn't feel Sertraline has been as effective, psych referral placed - continue Suboxone for OUD, evaluate at follow up in 4 weeks - [place] PDMP- no concerns - UDS-++THC, OPI, BUP, denies opiate use, will send confirmatory urine, cannabis one hitter- 0.5 concentrate lasts 3-4 weeks 08/02/2024 Over weight (ICD-10 - E66.3) 09/28/2023 Nutritional counseling (ICD-10 - Z71.3) 09/28/2023 Other Potential side effects of buprenorphine discussed, as well as taking buprenorphine as prescribed. Dangers of using other controlled substances (prescribed or illegal/including benzodiazepines) with buprenorphine discussed. Patient understands taking other narcotics with buprenorphine could lead to respiratory distress and even . Patient understands that ALL treating providers/physician s should be informed of buprenorphine use as part of a Medication Assisted Treatment program 09/28/2023 Other Provided case management services to address social determinants of health needs and reduce barriers to health care services. 05/02/2024 Other Unable to receive Sublocade today due to insurance issues. Discussed MAR program expectations and importance of regular follow-up. Patient agrees to take medication as prescribed. Discussed medication side effects, adverse effects, risks, benefits, as well as interactions. Encouraged non-use of opioids and other illicit substances. Has naloxone. Discontinuing buprenorphine increases the risk of overdose upon return to illicit opioid use. Use of alcohol or benzodiazepines with buprenorphine increases the risk of overdose and . Education provided about safe storage of medications. Encouraged participation in recovery groups/counseling services. Contact office with questions or concerns. Patient may self-administe r their own oral medications per [facility] Protocol. May not self-administe r Sublocade. 05/31/2024 Other Discussed medication side effects, adverse effects, risks, benefits, as well as interactions. Encouraged non-use of opioids. Has naloxone. Recommended participation in recovery groups and/or counseling services. May contact office with questions or concerns. Plan Of Treatment Future Test Test Name Order Date Opiates Confirmation, Urine* 08/02/2024 Insurance Providers Payer Name Payer Address Payer Phone Subscriber Number Group Number Insured Name Patient Relationship to Insured Coverage Start Date Coverage End Date [facility] Medicare Assure [address] [address] [place] [address] [phone] [id number] Filiberto Perez Self - patient is the insured MEDICAID [address] [place] [address] [id number] Filiberto Perez Self - patient is the insured 9 Medical (General) History Medical History History ICD Code Crohns SI OUD high blood pressure diabetes Surgical History Surgery Date(Month/Year) Bowel resection x12 Hernia stomach Hospitalization History Reason Date(Month/Year) See surgeries Septic infection 7 month stay 2013
--- OUTSIDE RECORDS SUMMARY | 2024-08-27 14:21 | XMS_ITS | Encounter Summary ---
Author Organization [facility] Address [address] [place] [address] Phone Care Team Providers Care Cardiopulmonary Physical Therapist Name Role Phone Derek Sanchez MD Primary Care Provider [phone] Shad Saunders MD Unavailable Reason for Visit * Reason Comments Medication Refill Encounter Details Date Type Department Care Team (Late st Contact Info) Description 01/24/2022 Refill [facility] [address] [place] [address] Derek Sanchez MD [address] [address] Medication Refill Social History Tobacco Use Types Packs/Day Years Used Date Smoking Tobacco: Never Smokeless Tobacco: Never Alcohol Use Standard Drinks/Week Comments No 0 (1 standard drink = 0.6 oz pur e alcohol) PHQ-2 Answer Date Recorded Total Score - Questions 1-9 0 06/21 Education Answer Date Recorded What is the [...] suspected to have Coronavirus/COVID-19? No / Unsure 01/25/2022 2:09 PM TAPE CUTTER documented as of this encounter Miscellaneous Notes * Telephone Encounter - Tesha Gurrola RN - 01/25/2022 8:02 AM CST Medication failed the protocol, provider to review and approve the medication order if appropriate. Requested Prescriptions Pending Prescriptions Disp Refills traZODone (DESYREL) 50 MG Tablet [Pharmacy Med Name: TRAZODONE 50MG TABLETS] 90 Tablet 1 Sig: TAKE 1 TABLET BY MOUTH EVERY NIGHT Serotonin Modulators (6 Month Refill Only) Protocol Failed - 01/24/2022 4:39 PM Failed - Has an encounter in the past 6 months with a depression or anxiety visit diagnosis Passed - Visit with relevant provider in past 6 months or upcoming 90 days Recent Visits Date Type Provider Dept 10/14/21 Office Visit Derek [facility] MD [facility] 08/31/21 Office Visit Derek Sanchez MD [facility] 08/12/21 Office Visit Janae Fabian [facility] Showing recent visits within past 182 days and meeting all other requirements Today's Visits Date Type Provider Dept 01/25/22 Appointment Chaim Park APRN, [facility] Showing today's visits and meeting all other requirements Future Appointments No visits were found meeting these conditions. Showing future appointments within next 90 days and meeting all other requirements Passed - No PRN Use for Trazodone Passed - Patient has established therapy with Serotonin Modulators for at least 6 months CUTTER documented in this encounter Plan of Treatment Not on file documented as of this encounter Visit Diagnoses Not on filedocumented in this encounter Additional Health Concerns Infection Onset Date Last Indicated Resolved Time COVID - 19 08/09/2024 08/09/2024 08/10/2024 1:39 AM CDT Assessment Noted Time PHQ-9 Depression Total Score: 0 07/13/19 7:59 AM CDT documented as of this encounter Care Teams Cardiopulmonary Physical Therapist Relationship Specialty Start Date End Date Derek Sanchez MD [address] [address] PCP - General Family Medicine 10/01/15 Shad Saunders MD #[address] [address] General Surgery 08/11/16 documented as of this encounter
--- OUTSIDE RECORDS SUMMARY | 2024-08-27 14:21 | XMS_ITS | Encounter Summary ---
Author Organization [facility] Address [address] [place] [address] Phone Care Team Providers Care Solar Energy Sales Specialist Name Role Phone Derek Sanchez MD Primary Care Provider [phone] Shad Saunders MD Unavailable [phone] Reason for Visit * Reason Comments Medication Refill Encounter Details Date Type Department Care Team (Late st Contact Info) Description 05/05/2022 Refill [facility] [address] [place] [address] Derek Sanchez MD [address] [address] Medication Refill Social History Tobacco Use Types [...] suspected to have Coronavirus/COVID-19? No / Unsure 05/05/2022 12:53 PM CDT documented as of this encounter Miscellaneous Notes * Telephone Encounter - Tesha Gurrola RN - 05/05/2022 3:00 PM CDT 90 days supply appropriate? documented in this encounter Plan of Treatment Not on file documented as of this encounter Visit Diagnoses Not on filedocumented in this encounter Additional Health Concerns Infection Onset Date Last Indicated Resolved Time COVID - 19 08/09/2024 08/09/2024 08/10/2024 1:39 AM CDT Assessment Noted Time PHQ-9 Depression Total Score: 0 07/13/19 7:59 AM CDT documented as of this encounter Care Teams Solar Energy Sales Specialist Relationship Specialty Start Date End Date Derek Sanchez MD [address] [address] PCP - General Family Medicine 10/01/15 Shad Saunders MD #[address] [address] General Surgery 08/11/16 documented as of this encounter
--- OUTSIDE RECORDS SUMMARY | 2024-08-27 14:21 | XMS_ITS | Encounter Summary ---
Author Organization [facility] Address [address] [place] [address] Phone Care Team Providers Care Water Engineer Name Role Phone Derek Sanchez MD Primary Care Provider [phone] Shad Saunders MD Unavailable [phone] Reason for Visit * Reason Comments Medication Refill Encounter Details Date Type Department Care Team (Late st Contact Info) Description 03/11/2021 Refill [facility] - Family Medicine [facility] [address] [place] [address] Derek Sanchez MD #[address] [address] Medication Refill Social History Tobacco Use Types Packs/Day Years Used Date Smoking Tobacco: Never Smokeless Tobacco: Never Alcohol Use Standard Drinks/Week Comments No 0 (1 standard drink = 0.6 oz pur e alcohol) PHQ-2 Answer Date Recorded Total Score - Questions 1-9 0 12/22 Education Answer Date Recorded What is the [...] have Coronavirus / COVID-19? No / Unsure 03/05/2021 2:01 PM RESEARCH ASST documented as of this encounter Miscellaneous Notes * Telephone Encounter - Tesha Gurrola RN - 03/11/2021 11:10 AM CST Name from pharmacy: LEVOTHYROXINE 0.075MG (75MCG) TABS Will file in chart as: levothyroxine (SYNTHROID) 75 MCG Tablet The original prescription was discontinued on 01/11/2021 by Derek Sanchez MD ARCH ASST documented in this encounter Plan of Treatment Not on file documented as of this encounter Visit Diagnoses Not on filedocumented in this encounter Additional Health Concerns Infection Onset Date Last Indicated Resolved Time COVID - 19 08/09/2024 08/09/2024 08/10/2024 1:39 AM CDT Assessment Noted Time PHQ-9 Depression Total Score: 0 01/12/20 9:05 AM RESEARCH ASST documented as of this encounter Care Teams Water Engineer Relationship Specialty Start Date End Date Derek Sanchez MD #[address] [address] PCP - General Family Medicine 10/01/15 Shad Saunders MD #[address] [address] General Surgery 08/11/16 documented as of this encounter
--- OUTSIDE RECORDS SUMMARY | 2024-08-27 14:21 | XMS_ITS | Encounter Summary ---
Author Organization [facility] Address [address] [place] [address] Phone Care Team Providers Care Lavender Farm Worker Name Role Phone Derek Sanchez MD Primary Care Provider [phone] Shad Saunders MD Unavailable [phone] Reason for Visit * Reason Comments Medication Refill Encounter Details Date Type Department Care Team (Late st Contact Info) Description 09/15/2023 Refill [facility] [address] [place] [address] Derek Sanchez MD #[address] [address] Medication Refill Social History Tobacco Use Types [...] as of this encounter Visit Diagnoses Diagnosis Pure hypercholesterolemia documented in this encounter Additional Health Concerns Infection Onset Date Last Indicated Resolved Time COVID - 19 08/09/2024 08/09/2024 08/10/2024 1:39 AM CDT Assessment Noted Time PHQ-9 Depression Total Score: 0 06/20/19 24 12:45 PM CDT documented as of this encounter Care Teams Lavender Farm Worker Relationship Specialty Start Date End Date Derek Sanchez MD #[address] [address] PCP - General Family Medicine 10/01/15 Shad Saunders MD #[address] [address] General Surgery 08/11/16 documented as of this encounter
--- OUTSIDE RECORDS SUMMARY | 2024-08-27 14:21 | XMS_ITS | Encounter Summary ---
Author Organization [facility] Address [address] [place] [address] Phone Care Team Providers Care Supervisor Machining Name Role Phone Derek Sanchez MD Primary Care Provider [phone] Shad Saunders MD Unavailable [phone] Reason for Visit * Reason Comments Medication Refill Encounter Details Date Type Department Care Team (Late st Contact Info) Description 05/24/2022 Refill [facility] [address] [place] [address] Derek Sanchez MD #[address] [address] Medication Refill Social History Tobacco Use Types [...] encounter Miscellaneous Notes * Telephone Encounter - Hazel Giles RN - 05/25/2022 10:07 AM CDT Medication failed the protocol, provider to review and approve the medication order if appropriate. Requested Prescriptions Pending Prescriptions Disp Refills Basaglar KwikPen 100 UNIT/ML Solution Pen-injector [Pharmacy Med Name: BASAGLAR 100 U/ML KWIKPEN INJ 3ML] 15 mL 1 Sig: ADMINISTER 15 UNITS UNDER THE SKIN EVERY EVENING Not Delegated - Insulin Protocol Failed - 05/24/2022 7:41 PM Failed - This refill cannot be delegated Passed - Visit with relevant provider in past 12 months or upcoming 90 days Recent Visits Date Type Provider Dept 05/05/22 Office Visit [place] [facility] [place]22 Office Visit Derek [place] [facility] [place] 01/25/22 Office Visit Chaim Park APRN, [place] [facility] [place] 10/14/21 Office Visit Derek Sanchez MD [facility] [place] 08/31/21 Office Visit Derek Sanchez MD [facility] 08/12/21 Office Visit Janae Fabian, [facility] [place]/12/21 Office Visit Derek Sanchez MD [facility] [place] Showing recent visits within past 365 days and meeting all other requirements Future Appointments Date Type Provider Dept 06/30/22 Appointment Derek Sanchez MD [facility] [place] Showing future appointments [...] documented as of this encounter Care Teams Supervisor Machining Relationship Specialty Start Date End Date Derek Sanchez MD [address] [address] PCP - General Family Medicine 10/01/15 Shad Saunders MD #[address] [address] General Surgery 08/11/16 documented as of this encounter
--- OUTSIDE RECORDS SUMMARY | 2024-08-27 14:21 | XMS_ITS | Encounter Summary ---
Author Organization [facility] Address [address] [place] [address] Phone Care Team Providers Care On Call Name Role Phone Derek Sanchez MD Primary Care Provider [phone] Shad Saunders MD Unavailable [phone] Reason for Visit * Reason Comments Medication Refill Encounter Details Date Type Department Care Team (Late st Contact Info) Description 04/01/2022 Refill [facility] - [facility] [address] [place] [address] Derek Sanchez MD [address] [address] Medication Refill Social History Tobacco Use Types [...] suspected to have Coronavirus/COVID-19? No / Unsure 04/01/2022 9:07 AM WOOD GRAINER documented as of this encounter Miscellaneous Notes * Telephone Encounter - Tesha Gurrola RN - 04/01/2022 12:25 PM CST Pharmacy sent this back asking for a 90 day Rx - 54g - 3 inhalers - due to patient's insurance. GRAINER documented in this encounter Plan of Treatment Not on file documented as of this encounter Visit Diagnoses Not on filedocumented in this encounter Additional Health Concerns Infection Onset Date Last Indicated Resolved Time COVID - 19 08/09/2024 08/09/2024 08/10/2024 1:39 AM CDT Assessment Noted Time PHQ-9 Depression Total Score: 0 07/13/19 7:59 AM CDT documented as of this encounter Care Teams On Call Relationship Specialty Start Date End Date Derek Sanchez MD [address] [address] PCP - General Family Medicine 10/01/15 Shad Saunders MD #[address] [address] General Surgery 08/11/16 documented as of this encounter
--- OUTSIDE RECORDS SUMMARY | 2024-08-27 14:21 | XMS_ITS | Encounter Summary ---
Author Organization [facility] Address [address] [place] [address] Phone Care Team Providers Care Special Events Coordinator Name Role Phone Derek Sanchez MD Primary Care Provider [phone] Shad Saunders MD Unavailable [phone] Reason for Visit * Reason Comments Medication Refill Encounter Details Date Type Department Care Team (Late st Contact Info) Description 05/26/2020 Refill [facility] - Family Medicine [facility] [address] [place] [id number] Derek Sanchez MD #[address] [address] Medication Refill Social History Tobacco Use Types [...] have Coronavirus / COVID-19? No / Unsure 05/22/2020 1:35 PM CDT documented as of this encounter Miscellaneous Notes * Telephone Encounter - Derek Sanchez MD - 05/27/2020 12:31 PM CDT Prescription approved. Please call in * Telephone Encounter - Tesha Gurrola RN - 05/27/2020 12:25 PM CDT Medication failed the protocol, provider to review and approve the medication order if appropriate. Requested Prescriptions Pending Prescriptions Disp Refills metFORMIN (GLUCOPHAGE-XR) 750 MG TABLET SR 24 HR [Pharmacy Med Name: METFORMIN ER 750MG 24HR TABS] 90 Tablet 3 Sig: TAKE 1 TABLET BY MOUTH DAILY Endocrinology: Diabetes - Biguanides Failed - 05/26/2020 12:59 PM Failed - Last BP in normal range BP Readings from Last 1 Encounters: 05/14/20 (!) 151/94 Passed - Valid encounter within last 12 months Past Office Visits Recent Outpatient Visits 2 weeks ago Type 2 diabetes mellitus without complication, without long-term current use of insulin(HCC) [facility] - Derek Cordero MD 2 months ago Chronic midline low back pain without sciatica [facility] Derek Cordero MD 2 months ago Shortness of breath [facility] Derek Grijalva MD 3 months ago Pure hypercholesterolemia [facility] Derek Cordero MD 5 months ago Essential hypertension [facility] Derek Cordero MD Upcoming Appointments Future Appointments In 1 week Derek Sanchez MD [facility] 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 - 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 and Past Visits Recent Visits Date Type Provider Dept 05/11/20 Office Visit Derek Sanchez MD [facility] 03/10/20 Office Visit [facility] [...] requirements Future Appointments Date Type Provider Dept 06/04/20 Appointment Derek Sanchez MD [facility] Showing future appointments within next 90 days with a meds authorizing provider and meeting all other requirements documented in this encounter Plan of Treatment Not on file documented as of this encounter Visit Diagnoses Not on filedocumented in this encounter Additional Health Concerns Infection Onset Date Last Indicated Resolved Time COVID - 19 01/30/2021 01/30/2021 01/30/2021 1:58 PM 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
--- OUTSIDE RECORDS SUMMARY | 2024-08-27 14:21 | XMS_ITS | Encounter Summary ---
Author Organization [facility] Address [address] [place] [address] Phone Care Team Providers Care Addictions Therapist Name Role Phone Derek Sanchez MD Primary Care Provider [phone] Shad Saunders MD Unavailable [phone] Reason for Visit * Reason Comments Medication Refill Encounter Details Date Type Department Care Team (Late st Contact Info) Description 07/26/2023 Refill [facility] Medicine [facility] [address]2 [place] [address] Derek Sanchez MD #[address] [address] Medication Refill Social History Tobacco Use Types [...] Telephone Encounter - Tesha Gurrola RN - 07/27/2023 8:43 AM CDT Medication failed the protocol, provider to review and approve the medication order if appropriate. Requested Prescriptions Pending Prescriptions Disp Refills insulin glargine (Basaglar KwikPen) 100 UNIT/ML Solution Pen-injector [Pharmacy Med Name: Basaglar KwikPen 100 UNIT/ML Solution pen-injector] 15 mL 2 Sig: INJECT 15 UNITS SUBCUTANEOUSLY NIGHTLY Not Delegated - Insulin Protocol Failed - 07/26/2023 2:19 PM Failed - This refill cannot be delegated Passed - Visit with relevant provider in past 12 months or upcoming 90 days Recent Visits Date Type Provider Dept 06/20/23 Office Visit [facility] Visit Tyesha Paez APRN, FORM SETTER [employer] [facility] Showing recent visits within past 365 days and meeting all other requirements Future Appointments No visits were found meeting these conditions. Showing future appointments within next 90 days and meeting all other requirements documented in this encounter Plan of Treatment Not on file documented as of this encounter Visit Diagnoses Diagnosis Type 2 diabetes mellitus without complication, with long-term current use of insulin documented in this encounter Additional Health Concerns Infection Onset Date Last Indicated Resolved Time COVID - 19 08/09/2024 08/09/2024 08/10/2024 1:39 AM CDT Assessment Noted Time PHQ-9 Depression Total Score: 0 06/20/19 24 12:45 PM CDT documented as of this encounter Care Teams Addictions Therapist Relationship Specialty Start Date End Date Derek Sanchez MD [id number] [address] PCP - General Family Medicine 10/01/15 Shad Saunders MD [address] [address] General Surgery 08/11/16 documented as of this encounter
--- OUTSIDE RECORDS SUMMARY | 2024-08-27 14:21 | XMS_ITS | Encounter Summary ---
Author Organization [facility] Address [address] [place] [address] Phone Care Team Providers Care Mixer Blender Name Role Phone Derek Sanchez MD Primary Care Provider [phone] Shad Saunders MD Unavailable [phone] Reason for Visit * Reason Comments Medication Refill Encounter Details Date Type Department Care Team (Late st Contact Info) Description 05/18/2020 Refill [facility] - Family Medicine [facility] [address] [place] [phone] Derek Sanchez MD #[address] [address] Medication Refill Social History Tobacco Use Types [...] have Coronavirus / COVID-19? No / Unsure 05/14/2020 10:36 AM CDT documented as of this encounter Miscellaneous Notes * Telephone Encounter - Tesha Gurrola RN - 05/18/2020 4:43 PM CDT LVM for pt to return call to office. * Telephone Encounter - Derek Sanchez MD - 05/18/2020 4:27 PM CDT Please call. The uds we did last week didn't show any of the norco. Why? documented in this encounter Plan of Treatment Not on file documented as of this encounter Visit Diagnoses Not on filedocumented in this encounter Additional Health Concerns Infection Onset Date Last Indicated Resolved Time COVID - 19 01/30/2021 01/30/2021 01/30/2021 1:58 PM MANAGER RESEARCH Respiratory Rule Out - RPA 01/30/2021 01/30/2021 1 04/03/2020 6:15 PM MANAGER RESEARCH COVID - 19 08/09/2024 08/09/2024 08/10/2024 1:39 AM CDT Assessment Noted Time PHQ-9 Depression Total Score: 13 11/05/ 020 1:45 PM CDT documented as of this encounter Care Teams Mixer Blender Relationship Specialty Start Date End Date Derek Sanchez MD [id number] [address] PCP - General Family Medicine 10/01/15 Shad Saunders MD [id number] [address] General Surgery 08/11/16 documented as of this encounter
--- OUTSIDE RECORDS SUMMARY | 2024-08-27 14:21 | XMS_ITS | Clinical Summary ---
Author Organization [facility] Address [address] [place] [address] Phone Care Team Providers Care Snow Technician Name Role Phone Derek Sanchez MD Primary Care Provider [phone] Shad Saunders MD Unavailable [phone] Allergies Active Allergy Reactions Criticality Noted Date Comments Metronidazole Other (see Comments),Swelling 08/14/2015 Reaction: OTHER, , Reaction: swelling, , , pancreatitis Medications omeprazole (PriLOSEC) 40 MG CAPSULE DELAYED RELEASE TAKE 1 CAPSULE BY MOUTH TWICE DAILY BEFORE BREAKFAST AND SUPPER 2020 Active SYRINGE-NEEDLE, DISP, 3 ML (B-D 3CC LUER-ANTONY SYR 22GX1) 22G X 1 3 ML Misc USE 3 ML EVERY 30 DAYS 2020 Active furosemide (LASIX) 20 MG TabletIndications:Bila teral leg edema TAKE 1 TABLET BY MOUTH LEGS DAILY NEEDED FOR SWELLING 90 Tablet 2021 Active Additional Information Patient not taking.Reported on 07/09/2024 buprenorphine-naloxone (Suboxone) 8-2 MG FILM by Sublingual route. Active insulin aspart (NovoLOG FlexPen) 100 UNIT/ML Solution Pen-injectorIndication s:Type 2 diabetes mellitus without complication, with long-term current use of insulin Inject up to 6 units subcutaneously three times a day with meals per sliding scale. 15 mL 2 2023 Active cloNIDine (CATAPRES TTS) 0.1 MG/24HR PATCH WEEKLY 1 Patch by Transdermal route every 7 days. 12 Patch 1 2024 Active fluticasone (FLONASE) 50 MCG/ACT Suspension 1-2 Sprays by Nasal route daily. Use in each nostril as directed. 48 g 1 2024 Active hydroCHLOROthiazide 25 MG Tablet Take 1 Tablet by mouth daily. 100 Tablet 1 2024 Active losartan (COZAAR) 100 MG Tablet Take 1 Tablet by mouth daily. 100 Tablet 1 2024 Active traZODone (DESYREL) 50 MG Tablet Take 1 Tablet by mouth nightly. 100 Tablet 1 2024 Active amLODIPine (NORVASC) 10 MG Tablet Take 1 Tablet by mouth daily. 100 Tablet 1 2024 Active atorvastatin (LIPITOR) 80 MG TabletIndications:Pure hypercholesterolemia Take 1 Tablet by mouth daily. 100 Tablet 1 2024 Active sertraline (ZOLOFT) 100 MG Tablet Take 1 Tablet by mouth daily. 100 Tablet 1 2024 Active tamsulosin (FLOMAX) 0.4 MG Capsule Take 1 Capsule by mouth daily. 100 Capsule 1 2024 Active Insulin Pen Needle (BD ULTRA-FINE PEN NEEDLES) 29G X 12.7MM Mis Use pen needle nightly with insulin injection. 100 Each 3 2024 Active promethazine (PHENERGAN) 25 MG Tablet Take 1 Tablet by mouth every 6 hours as needed for Nausea - 1st line. 30 Tablet 2024 Active insulin glargine (Lantus SoloStar) 100 UNIT/ML Solution Pen-injector 15 Units by Subcutaneous route nightly. 15 mL 1 2024 Active Cyanocobalamin (B-12 COMPLIANCE INJECTION IJ) 1,000 mcg by Injection route every 7 days. For 42 days Active albuterol 108 (90 Base) MCG/ACT Aerosol Solution USE 2 INHALATIONS BY MOUTH EVERY 6 HOURS NEEDED FOR WHEEZING 13.4 g 6 2024 Active albuterol 108 (90 Base) MCG/ACT Aerosol Solution take 2 Puffs by inhalation every 6 hours as needed for Wheezing. 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 Abdominal wall abscess 03/02/2016 Depression 03/02/2016 Chronic midline low back pain without sciatica 1 Crohn disease 09/30/2015 Hyperlipidemia 09/30/2015 Osteomyelitis 09/30/2015 Physical exam 09/30/2015 Anxiety Crohn's disease Hypertension GUY (obstructive sleep apnea) Overview (01/30/2021): Does not wear Cpap Encounters Date Type Department Care Team Description 08/22/2024 [facility] [address] [place] [address] Derek Sanchez MD 08/22/2024 [facility] [address] [place] [address] Derek Sanchez MD Medication Refill 08/09/2024 10:09 PM CDT - 08/10/2024 2:58 AM CDT Emergency [facility] [address] [place] [address] Lawrence Perez MD Headache Discharge Disposition: Discharged to home or Selfcare 08/09/2024 Travel 07/09/2024 Nurse Triage [facility] [address] [place] [phone] Derek Sanchez MD Advice Only; Depression (With recent suicidal ideations); Abdominal Pain; Diarrhea; Dental Pain; Headache (With recent vomiting); Vision Change 07/01/2024 [facility] [facility] [address] Derek Sanchez MD Medication Refill 06/18/2024 [facility] [address] [place] [address] Derek Sanchez MD Medication Refill 06/12/2024 [facility] [place] [address] Derek Sanchez MD Medication Refill 06/11/2024 [facility]phone [facility] [place] [address] Derek Sanchez MD 06/11/2024 [facility] [address] [place] [address] Derek Sanchez MD Medication Refill from Last 3 Months Immunizations Immunization Administration Dates Next Due Covid-19, Mrna, Lnp-s, PF, 1 00 mcg/0.5 mL Dose (Moderna) 07/10/2020,06/09/2020 Influenza Vaccine 11/16/2018 Influenza Vaccine greater than 3 yrs 10/2018,11/16/2018,01/22/2018,2016,11/25/2015 Influenza Vaccine, Quadrivalent, PF 03/23,01/11/2021,11/06/2019,2017,11/07/2016,11/25/2015 Influenza, Quadrivalent, Adjuvanted 01/27/2023 PUR FLU 3+ YRS PRES FREE QUAD IM 11/25/2015 Pneumococcal Vaccine - 13 Valent 11/28/2018 Pneumococcal Vaccine Adult - 23 Valent 05/01/2019 Family History Medical History Relation Name Comments Congestive Heart Failure Father Diabetes Father Diabetes Mother Stroke Mother Relation Name Status Comments Father Mother Social History Tobacco Use Types Packs/Day Years Used Date Smoking Tobacco: Never Smokeless Tobacco: Never Tobacco Cessation:Counseling Given: No Alcohol Use Standard Drinks/Week Comments No 0 (1 standard drink = 0.6 oz pur e alcohol) [facility] Utilities Answer Date Recorded In the past 12 months has e electric, gas, oil, or water company threatened to shut off services in your home? No 01/03/2024 Social Connection and Isolation Panel Answer Date Recorded In a typical week, how many times do you talk on the phone with family, friends, or neighbors? Never 01/03/2024 How often do you get together with friends or re latives? Never 01/03/2024 Attends Holiness Services Not on file 01/02 Active Member [...] Total Score - Questions 1-9 0 12/21 [facility] - Occupational Stress Questionnaire Answer Date Recorded [...] any time in the past 12 m [facility], were you homeless or living in a skilled nursing (including now)? No 01/03/2024 Education Answer Date [...] file Not on file Not on file Last Filed Vital Signs Vital Sign Reading Time Taken Comments Blood Pressure 175/87 08/10/2024 2:45 AM CDT Pulse 76 08/10/2024 2:45 AM CDT Temperature 37.1 C (98.7 F) 08/09/2024 9:22 PM CDT Respiratory Rate 16 08/09/2024 9:22 PM CDT Oxygen Saturation 95% 08/10/2024 2:45 AM CDT Inhaled Oxygen Concentration - - Weight 86.2 kg (190 lb) 08/09/2024 9:25 PM CDT Height 160 cm (5' 3) 08/09/2024 9:25 PM CDT Body Mass Index 33.66 08/09/2024 9:25 PM CDT Plan of Treatment Health Maintenance Due Date Last Done Comments TdaP Immunization 1955 Cologuard 02/29/2000 Immunochemical Fecal Occult Blood 02/29/2000 Zoster Immunization (1 of 2) 2005 Respiratory Syncytial Virus (RSV) Immunization (Adult) (1 - Risk 60-74 years 1-dose series) 2015 Diabetes: Eye Exam 12/31/2020 01/01/2020 SARS-COV-2 Immunization (3 - season) 2023 07/10/2020, 06/09/2020 Diabetes: Hemoglobin A1c 12/20/2023 024, 12/16/2022, 06/30/2022, Additional history exists Diabetes: Foot Exam 01/28/2024 01/27/2023 Pneumococcal Immunization (50+ years) (3 of 3 - PCV20 or PCV21) 04/30/2024 05/01/2019, 11/28/2018 Influenza Immunization (#1) 10/21/202409/2022, 04/01/2022, 01/11/2021, Additional history exists Diabetes: Nephropathy Screening 08/10/2025 08/10/2024, 06/20/2023, 09/11/2022, Additional history exists Colonoscopy 10/06/2031 10/05/2021, 06/20, 04/09/2018, Additional history exists Colorectal Cancer Screening 10/06/2031 Pneumococcal Immunization Combined Discontinued 05/01/2019, 05/01/2019, 11/28/2018 Hepatitis C Virus (HCV) Screening Completed 03/24/2022, 11/29/2018, 10/13/2016 PSA Discussion Completed 06/20/2023, 03/23, 04/07/2021 Hepatitis B Immunization Aged Out No longer eligible based on patient's age to complete this topic Human Papillomavirus (HPV) Immunization Aged Out No longer eligible based on patient's age to complete this topic Meningococcal Immunization (ACWY) Aged Out No longer eligible based on patient's age to complete this topic Rotavirus Immunization Aged Out No lo nger eligible based on patient's age to complete this topic Procedures Procedure Name Priority Date/Time Associated Diagnosis Comments CBC WITH AUTO DIFFERENTIAL STAT 08/10/2024 12:33 AM CDT CMP (COMPREHENSIVE METABOLIC PANEL) STAT 08/10/2024 12:33 AM CDT COMPLETE BLOOD COUNT (CBC) WITH DIFF STAT 08/10/2024 12:33 AM CDT RSV,SARS-COV-2,INF LUENZA A&B BY PCR STAT 08/10/2024 12:[address] HEAD OR BRAIN WO CONTRAST Stat with Interpretation 08/09/2024 11:17 PM CDT HEMOGLOBIN A1C W/ ESTIMATED GLUCOSE Routine 06/20/2023 1:09 PM CDT Type 2 diabetes mellitus without complication, with long-term current use of insulin (HCC) PSA SCREEN Routine 06/20/2023 1:09 PM CDT Screening for prostate cancer DILATED EYE EXAM Routine 01/01/2020 HEPATITIS PANEL ACUTE (AHP) Routine 10/13/2016 1:01 PM CDT Abdominal pain, unspecified abdominal location Crohn's disease of both small and large intestine with fistula (HCC) COLONOSCOPY Routine 08/05/2011 from Last 3 Months or Most Recently Relevant to Health Maintenance Results * (ABNORMAL) CBC with Auto Differential (08/10/2024 12:33 AM CDT) WBC 10.58 4.00 - 12.00 10(3)/mcL 08/10/2024 1:03 AM CDT [facility] RBC 4.46 4.40 - 5.80 10(6)/mcL 08/10/2024 1:03 AM CDT [facility] HEMOGLOBIN (HGB) 12.3(L) 13.0 - 16.5 g/dL 08/10/2024 1:03 AM CDT [facility] HEMATOCRIT (HCT) 36.8(L) 38.0 - 50.0 % 08/10/2024 1:03 AM CDT [facility] MCV 82.5 82.0 - 96.0 fL 08/10/2024 1:03 AM CDT [facility] MCH 27.6 26.0 - 32.0 pg 08/10/2024 1:03 AM CDT [facility] MCHC 33.4 31.0 - 36.0 g/dL 08/10/2024 1:03 AM CDT [facility] PLATELET COUNT 318 140 - 440 10(3)/mcL 08/10/2024 1:03 AM CDT [facility] RDW 14.0 11.8 - 15.5 % 08/10/2024 1:03 AM CDT [facility] MPV 9.8 8.0 - 12.6 fL 08/10/2024 1:03 AM CDT [facility] NEUTROPHILS 81.2(H) 40.0 - 68.0 % 08/10/2024 1:03 AM CDT [facility] LYMPHOCYTES 10.9(L) 19.0 - 49.0 % 08/10/2024 1:03 AM [facility] MONOCYTES 4.5 3.0 - 13.0 % 08/10/2024 1:03 AM CDT [facility] EOSINOPHILS 2.0 0.0 - 8.0 % 08/10/2024 1:03 AM [facility] BASOPHILS 1.1(H) 0.0 - 1.0 % 08/10/2024 1:03 AM CDT [facility] IMMATURE GRANULOCYTE 0.3 0.0 - 0.4 % 08/10/2024 1:03 AM [facility] Comment:Immature Granulocyte s includes Metamyelocytes, Myelocytes, and Promyelocytes. ABSOLUTE NEUTROPHILS 8.59(H) 1.40 - 5.30 10(3)/mcL 08/10/2024 1:03 AM CDT [facility] ABSOLUTE LYMPHOCYTES 1.15 0.90 - 3.30 10(3)/mcL 08/10/2024 1:03 AM CDT [facility] ABSOLUTE MONOCYTES 0.48 0.10 - 0.90 10(3)/mcL 08/10/2024 1:03 AM CDT [facility] ABSOLUTE EOSINOPHIL 0.21 0.00 - 0.50 10(3)/mcL 08/10/2024 1:03 AM CDT [facility] ABSOLUTE BASOPHILS 0.12(H) 0.00 - 0.10 10(3)/mcL 08/10/2024 1:03 AM CDT [facility] ABSOLUTE IMMATURE GRANULOCYTE 0.03 0.00 - 0.03 10 (3) mcL. 08/10/2024 1:03 AM CDT [facility] NRBC PER 100 WBC 0 08/11/19 1:03 AM CDT [facility] Blood Venipuncture / Unknown 08/10/2024 12:33 AM CDT 08/10/2024 1:01 AM CDT us Lawrence Perez MD HEMATOLOGY ORDERABLES Fin al Result [facility] [address] [place] [address] * (ABNORMAL) CMP (Comprehensive Metabolic Panel) (08/10/2024 12:33 AM CDT) SODIUM 143 136 - 145 mmol/L 08/10/2024 1:22 AM CDT [facility] POTASSIUM 3.7 3.5 - 5.1 mmol/L 08/10/2024 1:22 AM CDT [facility] CHLORIDE 110(H) 98 - 107 mmol/L 08/10/2024 1:22 AM CDT [facility] CO2, VENOUS 26 22 - 30 mmol/L 08/10/2024 1:22 AM CDT [facility] ANION GAP 10.7 <18.0 mmol/L 08/10/2024 1:22 AM CDT [facility] GLUCOSE 106(H) 70 - 99 mg/dL 08/10/2024 1:22 AM CDT [facility] BUN 22 8 - 26 mg/dL 08/10/2024 1:22 AM CDT [facility] CREATININE, BLOOD 1.57(H) 0.70 - 1.30 mg/dL 08/10/2024 1:22 AM [facility] BUN/CREATININE RATIO 14 12 - 20 ratio 08/10/2024 1:22 AM [facility] TOTAL PROTEIN 6.7 6.0 - 8.0 g/dL 08/10/2024 1:22 AM [facility] ALBUMIN 3.4(L) 3.5 - 5.0 g/dL 08/10/2024 1:22 AM [facility] A/G RATIO 1.0 1.0 - 2.2 08/10/2024 1:22 AM [facility] CALCIUM 8.1(L) 8.7 - 10.5 mg/dL 08/10/2024 1:22 AM [facility] T BILI 0.4 0.2 - 1.2 mg/dL 08/10/2024 1:22 AM [facility] SGOT (AST) 26 <43 U/L 08/10/2024 1:22 AM [facility] SGPT (ALT) 12 <56 U/L 08/10/2024 1:22 AM [facility] ALKALINE PHOSPHATASE 118 40 - 150 U/L 08/10/2024 1:22 AM [facility] GFR, ESTIMATED 47(L) >=60 08/10/2024 1:22 AM [facility] Comment: Creatinine Clearance is the preferred criteria for selecting drug dose adjustments in renally impaired patients. The GFR is provided as additional pertinent clinical information. GFR is reported in mL/min/1.73 sq m. Calculation based on the Chronic Kidney Disease Epidemiology Collaboration (CKD- EPI) equation refit without adjustment for race. GFR, EST. 53(L) >=60 025 1:22 AM [facility] GFR, EST. NONAFRICAN 44(L) >=60 08/10/2024 1:22 AM [facility] Blood Venipuncture / Unknown 08/10/2024 12:33 AM CDT 08/10/2024 1:01 AM CDT Lawrence Perez MD CHEMISTRY ORDERABLES Taylor l Result Performing Organization Address [facility] Co de Phone Number [facility] [address] [place] [address] * RSV,SARS-COV-2,INFLUENZA A&B BY PCR (08/10/2024 12:01 AM CDT) FLU A Negative Negative, Error 08/10/2024 1:39 AM CDT [facility] FLU B Negative Negative 08/10/2024 1:39 AM CDT [facility] RESP SYNC VIRUS Negative Negative 1:39 AM CDT [facility] SARSCOV2 NOT DETECTED (Reference Range for this test is Not Detected) 08/10/2024 1:39 AM CDT [facility] Comment:This test was perfor med by a Reverse Helpdesk Technician PCR Method. Swab NASOPHARYNGEAL STRUCTURE / Unknown Non-Phlebotomy Collection / Unknown 08/10/2024 12:01 AM CDT 08/10/2024 1:01 AM CDT Lawrence Perez MD MICROBIOLOGY - GENERAL OR DERABLES Final Result Performing Organization Address [facility] Co de Phone Number [facility] [address] [place] [address] * CT HEAD OR BRAIN WO CONTRAST (08/09/2024 11:17 PM CDT) Anatomical Region Laterality Modality Head N/A Computed Tomogra phy 08/09/2024 11:3 7 PM CDT Impressions 08/09/2024 11:39 PM CDT IMPRESSION: No acute intracranial findings. Narrative 08/09/2024 11:39 PM CDT EXAM DESCRIPTION: CT HEAD OR BRAIN WO CONTRAST REASON FOR STUDY: Sudden severe headache TECHNIQUE: Axial images acquired through the brain without intravenous contrast. Images stored on PACS. Automated exposure control was used as a dose optimization technique for this examination. COMPARISON: None FINDINGS: BRAIN: No hemorrhage, edema or mass effect. No recent infarct. Patchy hypodensity of the cerebral white matter suggests chronic small-vessel ischemic changes. Diffuse atrophy of the brain is noted. EXTRA-AXIAL SPACES: No fluid collections. No masses. CALVARIUM: No fracture. SINUSES/MASTOIDS: No fluid or mucosal thickening. ORBITS: No significant abnormality. OTHER: No other significant abnormality. THIS IS AN ELECTRONICALLY VERIFIED FINAL REPORT 08/09/2024 11:37 PM - Electronically signed by Filiberto LOMELI: ARMANI Report ID: [id number] Reading Location: [id number] Procedure Note Filiberto Singh MD - 08/09/2024 EXAM DESCRIPTION: CT HEAD OR BRAIN WO CONTRAST REASON FOR STUDY: Sudden severe headache TECHNIQUE: Axial images acquired through the brain without intravenous contrast. Images stored on PACS. Automated exposure control was used as a dose optimization technique for this examination. COMPARISON: None FINDINGS: BRAIN: No hemorrhage, edema or mass effect. No recent infarct. Patchy hypodensity of the cerebral white matter suggests chronic small-vessel ischemic changes. Diffuse atrophy of the brain is noted. EXTRA-AXIAL SPACES: No fluid collections. No masses. CALVARIUM: No fracture. SINUSES/MASTOIDS: No fluid or mucosal thickening. ORBITS: No significant abnormality. OTHER: No other significant abnormality. THIS IS AN ELECTRONICALLY VERIFIED FINAL REPORT 08/09/2024 11:37 PM - Electronically signed by Filiberto LOMELI: ARMANI Report ID: [id number] Reading Location: [id number] IMPRESSION: No acute intracranial findings. us Lawrence Perez MD IM CT ORDERABLES Final R esult * (ABNORMAL) HEMOGLOBIN A1C W/ ESTIMATED GLUCOSE (06/20/2023 1:09 PM CDT) HGB-A1C 6.3(H) 4.0 - 6.0 % 06/20/2023 4:22 PM CDT [facility] Est Average Glucose 134.1 mg/dL 06/20/2023 4:22 PM CDT [facility] Blood Venipuncture / Unknown 06/20/2023 1:09 PM CDT 06/20/2023 1:09 PM CDT Narrative [facility] - 06/20/2023 4:22 PM CDT HEMOGLOBIN A1C: DIABETIC PATIENTS: WELL-CONTROLLED: 6.2 - 7.0 INTERMEDIATE WELL-CONTROLLED: 7.0 - 9.0 POORLY-CONTROLLED: >9.0 [facility] CHIEF ENTERPRISE ARCHITECT, WARE TESTER CHEMISTRY ORDERABLES Final Result Performing Organization Address [facility] Co de Phone Number [facility] [address] [place] [address] * PSA SCREEN (06/20/2023 1:09 PM CDT) [facility] PSA SCREEN, TOTAL 0.56 <4.00 ng/mL 06/20/2023 4:39 PM CDT [facility] Blood Venipuncture / Unknown 06/20/2023 1:09 PM CDT 06/20/2023 1:09 PM CDT Narrative [facility] - 06/20/2023 4:39 PM CDT The EvostorNITheralogix Total PSA assay is a Chemiluminescent Microparticle Immunoassay (CMIA) for the quantitative determination of total PSA (both free PSA and PSA complexed to [id number]) in human serum. Total PSA values obtained with different assay methods, including Quinn PSA assays, cannot be used interchangeably. Tyesha Strohbeck CHIEF ENTERPRISE ARCHITECT, WARE TESTER CHEMISTRY ORDERABLES Final Result Performing Organization Address City/[facility]/ZIP Co de Phone Number [facility] [address] [place] [address] * DILATED EYE EXAM (01/01/2020) us Not On File Provider PROCEDURE/MINOR SURGICAL OR DERABLES Final Result * HEPATITIS PANEL ACUTE (AHP) (10/13/2016 1:01 PM CDT) HEPATITIS A IGM ANTIBODY NON DETECTED NON DETECTED 10/14/2016 12:05 AM CDT [facility] Comment: IGM Antibodies to HAV not detected. Does not exclude early acute or recovered HAV infection. HEP B CORE AB (IGM) NON DETECTED NON DETECTED 10/14/2016 12:05 AM CDT [facility] Comment: IGM anti-HBC not detected. Does not exclude the possibility of exposure to or infection with HBV. HEPATITIS B SURFACE ANTIGEN NON DETECTED NON DETECTED 10/14/2016 12:05 AM CDT [facility] Comment: A nonreactive test result does not exclude the possibility of exposure to or infection with Hepatitis B virus. A nonreactive test result in individuals with prior exposure to hepatitis B may be due to antigen levels below the detection limit of this assay or lack of antigen reactivity to the antibodies in this assay. hepatitis C antibody 0.17 <1 S/CO 10/14/2016 12:05 AM CDT [facility] Comment: Signal/Cutoff ratio < 0.79 is Nondetected Signal/Cutoff ratio 0.80-0.99 is Grayzone Signal/Cutoff ratio > 0.99 is Detected Supplemental assays are recommended if signal/cutoff ratio is >/=1.00. Signal/cutoff ratio result >/= 5.00 is 97% predictive of positivity for recombinant immunoblot assay (RIBA) and will be reported to the [place] Department of Public Health as required. Blood specimen (specimen) Venipuncture / Unknown 10/13/2016 1:01 PM CDT 10/13/2016 1:22 PM CDT us Deana Portillo MD HEMATOLOGY ORDERABLES F inal Result [facility] [address] [place] [address], [place] * COLONOSCOPY (08/05/2011) Fei Merida MD PROCEDURE/MINOR SURGICAL ORDER MICHAEL Final Result from Last 3 Months or Most Recently Relevant to Health Maintenance Insurance [facility] [address] [id number] [facility]IC[facility] Advance Directives * Full Code (Latest Code Status on File) Date Activated Date Inactivated Comments 01/30/2021 12:36 PM 02/02/2021 7:36 PM CPR-Full Treatment: FULL ARREST: Attempt Resuscitation/CPR wit intubation and mechanical ventilation. PRE-ARREST: Use entire range of life support measures to stabilize the patient. * Full Code Date Activated Date Inactivated Comments 09/20/2020 3:01 AM 09/22/2020 11:39 PM CPR-Full Molly tment: FULL ARREST: Attempt Resuscitation/CPR wit intubation and mechanical ventilation. PRE-ARREST: Use entire range of life support measures to stabilize the patient. * Full Code Date Activated Date Inactivated Comments 08/24/2016 10:42 PM 02/22/2017 9:22 PM * Full Code Date Activated Date Inactivated Comments 07/30/2016 5:30 PM 08/05/2016 8:09 PM CPR-Full Kamlesh atment: FULL ARREST: Attempt Resuscitation/CPR wit intubation and mechanical ventilation. PRE-ARREST: Use entire range of life support measures to stabilize the patient. Care Teams Snow Technician Relationship Specialty Start Date End Date Derek Sanchez MD [address] [address] PCP - General Family Medicine 8/11/16 Shad Saunders MD [address] [place] [address] General Surgery 08/11/16
--- OUTSIDE RECORDS SUMMARY | 2024-08-27 14:21 | XMS_ITS | Encounter Summary ---
Author Organization [facility] Address [address] [place] [address] Phone Care Team Providers Care Radiologic Technologist Mammogram Name Role Phone Derek Sanchez MD Primary Care Provider [phone] Shad Saunders MD Unavailable [phone] Reason for Visit * Reason Comments Medication Refill Encounter Details Date Type Department Care Team (Late st Contact Info) Description 07/04/2023 Refill [facility] [address] [place] [address] Derek Sanchez MD #[address] [address] Medication Refill Social History Tobacco Use Types [...] Telephone Encounter - Tesha Gurrola RN - 07/05/2023 10:10 AM CDT Medication failed the protocol, provider to review and approve the medication order if appropriate. Requested Prescriptions Pending Prescriptions Disp Refills cloNIDine (CATAPRES TTS) 0.1 MG/24HR PATCH WEEKLY [Pharmacy Med Name: cloNIDine 0.1 MG/24HR Patch weekly] 4 Patch 10 Sig: APPLY 1 PATCH TOPICALLY TO THE SKIN EVERY 7 DAYS Not Delegated - Anti-adrenergic Antihypertensives Protocol Failed - 07/04/2023 4:00 PM Failed - This refill cannot be delegated Passed - Visit with relevant provider in past 12 months or upcoming 90 days Recent Visits Date Type Provider Dept 06/20/23 Office Visit Derek Sanchez MD [facility] 01/27/23 Office Visit Derek Sanchez MD [facility] 12/16/22 Office Visit Tyesha Paez APRN, [facility] Showing recent visits within past 365 days and meeting all other requirements Future Appointments No visits were found meeting these conditions. Showing future appointments within next 90 days and meeting all other requirements hydroCHLOROthiazide 25 MG Tablet 30 Tablet 10 Sig: TAKE 1 TABLET BY MOUTH EVERY DAY Diuretics Protocol Passed - 07/04/2023 4:00 PM Passed - Serum potassium on record in past 12 months POTASSIUM Date Value Ref Range Status 06/20/2023 3.9 3.5 - 5.1 mmol/L Final Passed - Serum sodium on record in past 12 months SODIUM Date Value Ref Range Status 06/20/2023 142 136 - 145 mmol/L Final Passed - Blood pressure on record in past 12 months Clinician-entered: BP Readings from Last 3 Encounters: 06/20/23 126/64 01/27/23 134/64 12/16/22 138/64 Patient-entered: No data recorded Passed - Visit with relevant provider in past 12 months or upcoming 90 days Recent Visits Date Type Provider Dept 06/20/23 Office Visit Derek Sanchez MD [facility] 01/27/23 Office Visit Derek Sanchez MD [facility] 10/27/23 Office Visit Tyesha Paez, HEALTH CARE COACH, CALL [facility] CONTACT CENTRE CO[facility] Showing recent visits within past 365 days and meeting all other requirements Future Appointments No visits were found meeting these conditions. Showing future appointments within next 90 days and meeting all other requirements Passed - GFR on record in past 12 months GFR, EST. NONAFRICAN Date Value Ref Range Status 06/20/2023 51 (L) >=60 Final documented in this encounter Plan of Treatment Not on file documented as of this encounter Visit Diagnoses Not on filedocumented in this encounter Additional Health Concerns Infection Onset Date Last Indicated Resolved Time COVID - 19 08/09/2024 08/09/2024 08/10/2024 1:39 AM CDT Assessment Noted Time PHQ-9 Depression Total Score: 0 06/20/19 24 12:45 PM CDT documented as of this encounter Care Teams Radiologic Technologist Mammogram Relationship Specialty Start Date End Date Derek Sanchez MD [address] [address] PCP - General Family Medicine 10/01/15 Shad Saunders MD #[address] [address] General Surgery 08/11/16 documented as of this encounter
--- OUTSIDE RECORDS SUMMARY | 2024-08-27 14:21 | XMS_ITS | Encounter Summary ---
Author Organization [facility] Address [address] [place] [address] Phone Care Team Providers Care Place Change Roof Bolter Name Role Phone Derek Sanchez MD Primary Care Provider [phone] Shad Saunders MD Unavailable [phone] Reason for Visit * Reason Comments Medication Refill Encounter Details Date Type Department Care Team (Late st Contact Info) Description 07/05/2022 Refill [facility] [address] [place] [id number] Janae Fabian PAC [address] [place] [address] Medication Refill Social History Tobacco Use Types [...] Telephone Encounter - Tesha Gurrola RN - 07/05/2022 11:16 AM CDT Images from the original note were not included. Levothyroxine Sodium Dispensed Days Supply Quantity Provider Pharmacy LEVOTHYROXIN 25MCG TAB 07/02/2022 90 90 Tablet Janae Fabian, [facility] #... LEVOTHYROXINE 0.025MG (25MCG) TAB 03/09/2022 90 90 Each DanetteerJanae, PAC [facility] documented in this encounter Plan of Treatment Not on file documented as of this encounter Visit Diagnoses Not on filedocumented in this encounter Additional Health Concerns Infection Onset Date Last Indicated Resolved Time COVID - 19 08/09/2024 08/09/2024 08/10/2024 1:39 AM CDT Assessment Noted Time PHQ-9 Depression Total Score: 6 07/01/19 23 12:00 PM CDT documented as of this encounter Care Teams Place Change Roof Bolter Relationship Specialty Start Date End Date Derek Sanchez MD #[address] [address] PCP - General Family Medicine 10/01/15 Shad Saunders MD #[address] [address] General Surgery 08/11/16 documented as of this encounter
--- OUTSIDE RECORDS SUMMARY | 2024-08-27 14:21 | XMS_ITS | Encounter Summary ---
Author Organization [facility] Address [address] [place] [address] Phone Care Team Providers Care Ward Supervisor Name Role Phone Derek Sanchez MD Primary Care Provider [phone] Shad Saunders MD Unavailable [phone] Reason for Visit * Reason Comments Medication Refill Encounter Details Date Type Department Care Team (Late st Contact Info) Description 06/18/2024 Refill [facility] - [facility] [address] [place] [phone] Derek Sanchez MD #[address] [address] Medication Refill Social History Tobacco Use Types Packs/Day Years Used Date Smoking Tobacco: Never Smokeless Tobacco: Never Alcohol Use Standard Drinks/Week Comments No 0 (1 standard drink = 0.6 oz pur e alcohol) [facility] Utilities Answer Date Recorded In the past 12 months has [employer] electric, gas, oil, or water company threatened to shut off services in your home? No 01/03/2024 Social Connection and Isolation Panel Answer Date Recorded In a typical week, how many times do you talk on the phone with family, friends, or neighbors? Never 01/03/2024 How often do you get together with friends or re latives? Never 01/03/2024 Attends Christianity Services Not on file 11/13 /2024 Active [...] Total Score - Questions 1-9 0 12/21 [facility] - Occupational [...] any time in the past 12 m [facility], were you homeless or living in a assisted (including now)? No 01/03/2024 Education Answer Date [...] Telephone Encounter - Tesha Gurrola RN - 06/18/2024 11:54 AM CDT Images from the original note were not included. Albuterol Sulfate Dispensed Days Supply Quantity Provider Pharmacy ALBUTEROL SULFATE HFA 108 (90 Base) MCG/ACT AERS 04/10/2024 100 26.8 g Derek Sanchez MD [facility] VENTOLIN HFA 108 (90 Base) MCG/ACT AERS 03/07/2024 25 18 g Derek Sanchez MD [facility]... PRN medication documented in this encounter Plan of Treatment Not on file documented as of this encounter Visit Diagnoses Not on filedocumented in this encounter Additional Health Concerns Infection Onset Date Last Indicated Resolved Time COVID - 19 08/09/2024 08/09/2024 08/10/2024 1:39 AM CDT Assessment Noted Time PHQ-9 Depression Total Score: 0 01/03/20 24 11:07 AM [employer] documented as of this encounter Care Teams Ward Supervisor Relationship Specialty Start Date End Date Derek Sanchez MD #[address] [address] PCP - General Family Medicine 10/01/15 Shad Saunders MD #[address] [address] General Surgery 08/11/16 documented as of this encounter
--- OUTSIDE RECORDS SUMMARY | 2024-08-27 14:21 | XMS_ITS | Encounter Summary ---
Author Organization [facility] Address [address] [place] [address] Phone Care Team Providers Care Software Configuration Specialist Name Role Phone Derek Sanchez MD Primary Care Provider [phone] Shad Saunders MD Unavailable [phone] Reason for Visit * Reason Comments Medication Refill Encounter Details Date Type Department Care Team (Late st Contact Info) Description 03/08/2022 Refill [facility] [address]2 [place] [address] Derek Sanchez MD #[address] [address] Medication Refill Social History Tobacco Use Types [...] documented as of this encounter Care Teams Software Configuration Specialist Relationship Specialty Start Date End Date Derek Sanchez MD [id number] [address] PCP - General Family Medicine 10/01/15 Shad Saunders MD #[address] [address] General Surgery 08/11/16 documented as of this encounter
--- NOTE | 2024-08-27 14:24 | ECG_ITS ---
Test Date: 2024-08-27 14:32:46 Measurements Intervals [place] Rate: 60 P: -6 MO: 192 QRS: 84 QRSD: 126 T: 40 QT: 445 QTc: 446 Interpretive Statements SINUS RHYTHM WITH OCCASIONAL VENTRICULAR PREMATURE COMPLEXES POSSIBLE RIGHT VENTRICULAR CONDUCTION DELAY [RSR (QR) IN V1/V2] ABNORMAL ECG WARNING: DATA QUALITY MAY AFFECT INTERPRETATION No previous ECG available for comparison Electronically Signed On 08-28-2024 07:38:46 CDT by Derek Brock M.D.
[2024-08-27 14:25] VITALS: BP 173/70; PULSE 60; RESP 20; TEMP 37.1; O2SAT 96
--- NOTE | 2024-08-27 15:13 | ED.NAVMDI ---
HPI - Nausea/Vomiting/Diarrhea General Chief complaint: Dizziness Stated complaint: lightheaded/nausea/fatigued Time Seen by Provider: 08/27/24 14:40 Source: patient and RN notes reviewed Mode of arrival: ambulatory Limitations: no limitations History of Present Illness HPI Narrative: 69-year-old male presents Express Care with son complaining of nausea, vomiting, headaches, weakness and lightheadedness for 2 days. The patient has a history of type 2 diabetes, Crohn's disease, small bowel obstruction requiring surgical intervention, hypertension. Patient able to keep anything down last 2 days. Also reports poor appetite. Patient denies any fevers, body aches, chills, abdominal pain, focal weakness, slurred speech, facial droop, vision changes, diarrhea, urinary symptoms, chest pain, shortness of breath. Patient took some Aleve last night because he developed a headache. Related Data Home Medications ?Medication ?Instructions ?Recorded ?Confirmed ?Last Taken ?Type hydrochlorothiazide 25 mg tablet 25 mg PO DAILY 05/03/21 10/10/23 Unknown History insulin glargine 100 unit/mL (3 15 unit subcut QPM 05/03/21 10/10/23 Unknown History mL) subcutaneous pen (Basaglar KwikPen U-100 Insulin) levothyroxine 75 mcg tablet 75 mcg PO DAILY 05/03/21 10/10/23 Unknown History sertraline 100 mg tablet 100 mg PO DAILY 05/03/21 10/10/23 Unknown History trazodone 50 mg tablet 50 mg PO HS 05/03/21 10/10/23 Unknown History albuterol sulfate 90 mcg/actuation 2 puff inhalation Q4-6H PRN 10/21/22 10/10/23 Unknown History aerosol inhaler Shortness Of Breath Or Wheezing atorvastatin 80 mg tablet 80 mg PO DAILY 10/21/22 10/10/23 Unknown History amlodipine 10 mg tablet 10 mg PO DAILY 04/03/23 10/10/23 Unknown History losartan 100 mg tablet 100 mg PO DAILY 04/03/23 10/10/23 Unknown History buprenorphine 8 mg-naloxone 2 mg film 08/27/24 Unknown History sublingual film risankizumab-rzaa 360 mg/2.4 mL mg subcut 08/27/24 Unknown History (150 mg/mL) subcut wearable injector (Anny) tamsulosin 0.4 mg capsule mg PO 08/27/24 Unknown History Allergies Allergy/AdvReac Type Severity Reaction Status Date / Time metronidazole Allergy Intermediate Swelling Verified 08/27/24 14:50 Review of Systems Review of Systems: CONSTITUTIONAL: Denies fever, body aches, chills, or sweats. EYES: Denies visual changes, redness, or discharge. ENT: Denies rhinorrhea, congestion, sore throat, or otalgia. CARDIOVASCULAR: Denies chest pain, palpitations, dizziness, or edema. Positive for lightheadedness. RESPIRATORY: Denies cough or dyspnea. GASTROINTESTINAL: Denies abdominal pain, or diarrhea. Positive for nausea and vomiting. GENITOURINARY: Denies dysuria or hematuria. SKIN: Denies rash or itching. MUSCULOSKELETAL: Denies back pain, joint pain, or myalgia. NEUROLOGIC: Denies numbness, slurred speech, facial droop, focal weakness. Positive for generalized weakness and headaches. PSYCHIATRIC: Denies anxiety or depression. All other systems reviewed are negative, except as documented in HPI. [facility] Past Medical History Medical History Anxiety and depression Hypertension Osteomyelitis Had PICC line Kidney stone Hyperlipidemia Chronic back pain Crohn's disease not affecting current episode of care Hypothyroidism Diabetes Surgical History Surgical History History of intestinal surgery for bowel obstruction History of appendectomy Family History Family History Father Cerebrovascular accident Family history of coronary artery disease Mother Cerebrovascular accident Other Diabetes mellitus Social History Social History Smoking status: Never smoker Alcohol intake: never Substance use: never Gender identity (if verbalized by the patient): Male Comments At the time of my signature, I reviewed and agree with the nursing past medical, surgical, social, and family history. There is no relevant family history pertinent to the patient complaint. Exam Narrative: GENERAL: This is a well-nourished, well-developed adult, in no apparent distress. They are non ill-appearing, nontoxic appearing. Patient appears fatigued. HEAD: normocephalic, atraumatic. EYES: Sclera clear/white. Conjunctiva normal. Vision is grossly intact. Extraocular movements intact. Pupils PERRLA. No nystagmus. EARS: External ears normal, Hearing grossly intact. NOSE: External nose normal THROAT: Mucous membranes moist, NECK: Neck supple, non-tender without lymphadenopathy, masses or thyromegaly. CARDIOVASCULAR: Regular rate and rhythm without murmurs, gallops, or rubs. RESPIRATORY: Clear to auscultation. Breath sounds equal bilaterally. No wheezes, rales, or rhonchi. Respiratory rate normal, respiratory effort nonlabored, no respiratory distress. GASTROINTESTINAL: Abdomen soft, non-tender, nondistended. Bowel sounds are hypoactive. No hepato-splenomegaly, or palpable masses. No guarding or rigidity. Large abdominal scar from surgery present. No rebound tenderness. SKIN: warm, Dry, intact with no suspicious lesions or rash, good texture and turgor. NEURO: awake, alert, and oriented to person, place and time. There were no obvious focal neurologic abnormalities. No pronator drift, tour counselor strength 5/5 equal bilaterally, leg strength equal bilaterally 5/5. No limb ataxia. Gait steady. Cranial nerves 2-12 grossly intact. Speech is clear. No facial droop. EXTREMITIES: No joint tenderness, effusion, or edema noted. BACK: Nontender without deformity. Course Course Emergency Course: Portions of this record may have been created with voice recognition software Level of Care: Express Care Visit Vital Signs Vital signs: Vital Signs Temperature 98.7 F 08/27/24 14:25 Pulse Rate 60 08/27/24 14:25 Respiratory Rate 20 08/27/24 14:25 Blood Pressure 173/70 H 08/27/24 14:25 Pulse Oximetry 96 08/27/24 14:25 Oxygen Delivery Room Air 08/27/24 14:25 Temperature 98.7 F 08/27/24 14:25 Pulse Rate 60 08/27/24 14:25 Respiratory Rate 20 08/27/24 14:25 Blood Pressure 173/70 H 08/27/24 14:25 Pulse Oximetry 96 08/27/24 14:25 Oxygen Delivery Room Air 08/27/24 14:25 Reviewed Transfer Transfered to: [facility]) Transfer rationale: Patient requires Higher level care, further lab work, fluids, and possible advanced imaging. Possible dehydration. Accepting physician: Dr. Torres MDM - Nausea/Vomiting/Diarrhea MDM Narrative Medical decision making narrative: NIH score of 0. EKG is sinus rhythm with a PVC. No ischemic findings. No peritoneal exam findings. Bedside blood sugar 136. Patient does not and appear clinically dehydrated. Given patient's symptoms and his health history, it is recommend the patient seek a higher level care and proceed immediately to the emergency department. Patient is agreeable to go to [facility] ER. Color to [facility] ER and spoke to Maribell PATHAK who is aware this patient and Dr. Torres who accepted the patient for transfer. Patient advised to remain NPO proceed immediately to the ER. Patient's son states he will take him to the hospital via private vehicle. Differential Diagnosis Differential diagnosis: Likely gastroenteritis, dehydration and other (Small-bowel obstruction, infection, ACS, CVA) Lab Data Attestation: I reviewed the patient's lab results. Labs: Lab Results 08/27/24 Range/Units 14:38 POC Capillary Glucose 136 H (65-105) mg/dl ECG Data EKG #1: Attestation: I personally reviewed and interpreted this ECG as follows: ECG completion date: 08/27/24 ECG completion time: 14:32 Prior ECG tracings: not available for review EKG Interpretation: normal rate, sinus rhythm, PVCs, no ST changes, normal QT and NL axis Critical Care Time Critical Care Time Critical Care Time: No Discharge Plan Discharge Clinical Impression: Weakness Nausea & vomiting Qualifiers: Vomiting type: unspecified Qualified Code(s): R11.2 - Nausea with vomiting, unspecified Patient Disposition: Acute Care Hospital Condition: Stable Patient Language: French Prescriptions: No Action hydrochlorothiazide 25 mg tablet 25 mg PO DAILY insulin glargine [Basaglar KwikPen U-100 Insulin] 100 unit/mL (3 mL) insulin pen 15 unit SUBCUT QPM levothyroxine 75 mcg tablet 75 mcg PO DAILY sertraline 100 mg tablet 100 mg PO DAILY trazodone 50 mg tablet 50 mg PO HS albuterol sulfate 90 mcg/actuation HFA aerosol inhaler 2 puff INHALATION Q4-6H PRN (Reason: Shortness Of Breath Or Wheezing) atorvastatin 80 mg tablet 80 mg PO DAILY tamsulosin 0.4 mg capsule PO buprenorphine-naloxone 8-2 mg film Skyrizi 360 mg/2.4 mL (150 mg/mL) wearable injector SUBCUT amlodipine 10 mg tablet 10 mg PO DAILY losartan 100 mg tablet 100 mg PO DAILY fluticasone propionate 50 mcg/actuation spray,suspension 2 spray NASAL DAILY 14 Days Qty: 9.9 0RF Rx Instructions: administer into each nostril Follow-up/Referrals: Laura,Derek Rock MD [Primary Care Provider] - Time of Disposition: 15:00
== END 2024-08-27 15:00 | disposition short-term general hospital (02) ==
PROVIDERS: PCP Internal Medicine
DX: R53.1 Weakness (principal); R11.2 Nausea with vomiting, unspecified; I10 Essential (primary) hypertension; E11.9 Type 2 diabetes mellitus without complications; Z79.01 Long term (current) use of anticoagulants; K50.90 Crohn's disease, unspecified, without complications; E03.9 Hypothyroidism, unspecified; E78.5 Hyperlipidemia, unspecified; F41.9 Anxiety disorder, unspecified; F32.A Depression, unspecified
CPT/HCPCS: 82948; 93005; 99213; G0463